=== PATIENT | female | born 1945 | race Caucasian/White ===

== ENCOUNTER → 2016-12-04 | Outpatient (CLI) | payer MEDICARE ==
--- NOTE | 2016-12-04 17:30 | ECHOF ---
Referral Reason:I35.1 Nonrheumatic aortic valve insufficiency MEASUREMENTS -------- HEIGHT: 165.1 cm WEIGHT: 71.2 kg BP: 145/90 IVSd: 0.8 cm (0.6 - 1.1) LVIDd: 3.6 cm (3.9 - 5.3) LVPWd: 0.7 cm (0.6 - 1.1) IVSs: 1.6 cm LVIDs: 2.0 cm LVPWs: 1.5 cm Ao Diam: 2.2 cm (2.0 - 3.7) AV Cusp: 1.0 cm (1.5 - 2.6) LA Diam: 2.9 cm (2.7 - 3.8) MV EXCURSION: 10.065 mm (> 18.000) MV EF SLOPE: 50 mm/s (70 - 150) EPSS: 0.4 cm MV E Niranjan: 1.06 m/s MV DecT: 274 ms MV A Niranjan: 1.05 m/s MV E/A Ratio: 1.01 AV maxP.55 mmHg AV meanP.39 mmHg AR PHT: 1221 ms RAP: 5.00 mmHg RVSP: 34.87 mmHg FINDINGS -------- Sinus rhythm. This was a technically good study. Left ventricular wall thickness is normal. Overall left ventricular systolic function is normal with, an EF between 55 - 60 %. The right ventricle is normal in size and function. The left atrium is normal in size. The right atrium is normal in size. Aortic valve is trileaflet and is moderately thickened. There is mild aortic regurgitation. There is moderate aortic stenosis present. Peak/mean gradient across the Aortic Valve is 25.55mmHg / 17.39mmHg. The mitral valve leaflets are mildly thickened. Mild mitral regurgitation is present. Mild tricuspid regurgitation present. The right ventricular systolic pressure, as measured by Doppler, is 34.87mmHg. Pulmonic valve appears structurally normal. The aortic root size is normal. The pericardium is normal. CONCLUSIONS -------- 1. Sinus rhythm. 2. There is moderate aortic stenosis present. 3. Peak/mean gradient across the Aortic Valve is 25.55mmHg / 17.39mmHg. 4. The mitral valve leaflets are mildly thickened. 5. Mild mitral regurgitation is present. 6. Mild tricuspid regurgitation present. 7. The right ventricular systolic pressure, as measured by Doppler, is 34.87mmHg. 8. Pulmonic valve appears structurally normal. 9. The aortic root size is normal. 10. The pericardium is normal. 11. This was a technically good study. 12. Left ventricular wall thickness is normal. 13. Overall left ventricular systolic function is normal with, an EF between 55 - 60 %. 14. The right ventricle is normal in size and function. 15. The left atrium is normal in size. 16. The right atrium is normal in size. 17. Aortic valve is trileaflet and is moderately thickened. 18. There is mild aortic regurgitation. LEGAL DIRECTOR: Carolina Garcias RDCS
== END | disposition home or self-care (01) ==
LOC: RADECHMAIN 13:08
PROVIDERS: ATTEND Family Medicine
DX: I08.3 Combined rheumatic disorders of mitral, aortic and tricuspid valves (principal)
CPT/HCPCS: 93306

== ENCOUNTER → 2017-07-08 | Outpatient (CLI) | payer MEDICARE ==
--- NOTE | 2017-07-08 09:15 | CT ---
EXAMINATION TYPE: CT lumbar spine wo con DATE OF EXAM: 07/08/2017 COMPARISON: NONE HISTORY: 71-year-old female complains of chronic low back pain, increased after recent fall. Collapse d vertebra. TECHNIQUE: Contiguous axial scanning of the lumbar spine without IV contrast. Coronal and sagittal re constructions performed. CT DLP: 963 mGycm Automated exposure control for dose reduction was used. FINDINGS: There is mild to moderate paravertebral soft tissue swelling at the T11-T12 and T12 levels. Small amount of air just deep to the inferior T11 endplate and very slight endplate irregularity, sag ittal image 24. However, there is a superior endplate fracture of T12 with only minimal 5-10% overall vertebral body height loss. Mild bulging disc at this T11-T12 level impresses onto the ventral thecal sac without si gnificant spinal canal stenosis. Moderate right and mild left neuroforaminal stenosis at this level. There is a large Schmorl's node of L4 vertebral body and slight retropulsion of the superior endplate into the ventral spinal canal minimally narrowing the spinal canal. No acute fracture lucency or par avertebral swelling is seen. There is moderate bilateral neuroforaminal stenosis at this L3-L4 level. At L2-L3, there is diffuse disc bulge impressing on the ventral thecal sac. At L4-L5, diffuse disc bulge impressing on the ventral thecal sac. Additional facet arthropathy contr ibuting to mild bilateral neural foraminal stenosis. Disc material may abut both traversing L5 nerve roots here. At L5-S1, there is facet arthropathy and bulging disc. Changes result in moderate to severe bilateral neural foraminal stenosis without significant spinal canal stenosis. Degenerative thinning of the interspinous ligaments with abutment of the spinous processes in the low er lumbar spine. There is diffuse ectasia of the abdominal aorta with a trilobed fusiform dilatations of the infrarena l abdominal aorta. The upper fusiform dilatation measures up to 2.5 cm, the mid fusiform dilatation m easures up to 2.4 cm, and the distal abdominal aortic AAA measures up to 3.8 cm measured on coronal i mage 4. 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 IMPRESSION: 1. MODERATE MULTILEVEL DEGENERATIVE DISC DISEASE. ADDITIONAL FACET ARTHROPATHY LOWER LUMBAR SPINE AND BAASTRUP'S DISEASE LOWER LUMBAR SPINE. NO MALALIGNMENT. 2. PARAVERTEBRAL SOFT TISSUE SWELLING AT T11-T12. SUSPECT AN ACUTE DEVELOPING SCHMORL'S NODE OF THE I NFERIOR T11 ENDPLATE AND A MILD SUPERIOR ENDPLATE FRACTURE OF T12. MINIMAL 5-10% OVERALL HEIGHT LOSS OF THE T12 VERTEBRAL BODY AND MINIMAL RETROPULSION INTO THE VENTRAL SPINAL CANAL WITHOUT CANAL COMPRO MISE. 3. MODERATE RIGHT AND MILD LEFT NEURAL FORAMINAL STENOSIS HERE AT T11-T12. 4. THE MILD SUPERIOR ENDPLATE COMPRESSION DEFORMITY OF L4 APPEARS CHRONIC. 5. MODERATE TO SEVERE BILATERAL NEURAL FORAMINAL STENOSES AT L5-S1 SECONDARY TO BULGING DISC AND FACE T ARTHROPATHY. ADDITIONAL DEGENERATIVE CHANGES OUTLINED ABOVE. 6. NOTE ECTATIC ABDOMINAL AORTA WITH A DISTAL AAA MEASURING UP TO 3.8 CM. APPROPRIATE FOLLOW-UP RECOM MENDED. 7. 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
== END | disposition home or self-care (01) ==
LOC: RADCTMAIN 08:32
PROVIDERS: ATTEND Family Medicine
DX: M99.73 Connective tissue and disc stenosis of intervertebral foramina of lumbar region (principal); M51.27 Other intervertebral disc displacement, lumbosacral region; M47.816 Spondylosis without myelopathy or radiculopathy, lumbar region; M51.36 Other intervertebral disc degeneration, lumbar region; M46.87 Other specified inflammatory spondylopathies, lumbosacral region; M43.8X6 Other specified deforming dorsopathies, lumbar region; M48.26 Kissing spine, lumbar region
CPT/HCPCS: 72131

== ENCOUNTER → 2017-07-29 | Outpatient (CLI) | payer MEDICARE ==
--- NOTE | 2017-08-02 07:59 | MM ---
Reason for exam: screening (asymptomatic). Last mammogram was performed 1 year and 3 months ago. History: Patient is postmenopausal. Took estrogen for 15 years. Took progesterone for 15 years. Physical Findings: A clinical breast exam by your physician is recommended on an annual basis and results should be correlated with mammographic findings. MG 3D Screening Mammo W/Cad Bilateral CC and MLO view(s) were taken. Prior study comparison: May 11, 2016, bilateral MG 3d screening mammo w/cad. May 01, 2015, bilateral MG screening mammo w CAD. The breast tissue is almost entirely fat. No significant changes when compared with prior studies. ASSESSMENT: Benign, BI-RAD 2 RECOMMENDATION: Routine screening mammogram of both breasts in 1 year.
== END | disposition home or self-care (01) ==
LOC: RADMAMWWP 12:42
PROVIDERS: ATTEND Family Medicine
DX: Z12.31 Encounter for screening mammogram for malignant neoplasm of breast (principal)
CPT/HCPCS: 77063; 77067

== ENCOUNTER → 2017-11-04 | Outpatient (CLI) | payer MEDICARE ==
--- NOTE | 2017-11-04 20:39 | ECHOF ---
Referral Reason:I35.0 Nonrheumatic Aortic Valve Stenosis MEASUREMENTS -------- HEIGHT: 162.6 cm WEIGHT: 72.6 kg BP: 181/81 RVIDd: 3.0 cm (< 3.3) IVSd: 1.2 cm (0.6 - 1.1) LVIDd: 3.8 cm (3.9 - 5.3) LVPWd: 1.3 cm (0.6 - 1.1) IVSs: 1.8 cm LVIDs: 2.1 cm LVPWs: 1.6 cm LA Diam: 3.4 cm (2.7 - 3.8) LAESV Index (A-L): 24.73 ml/m Ao Diam: 3.0 cm (2.0 - 3.7) AV Cusp: 1.7 cm (1.5 - 2.6) MV EXCURSION: 11.714 mm (> 18.000) MV EF SLOPE: 34 mm/s (70 - 150) EPSS: 0.6 cm MV E Niranjan: 0.94 m/s MV DecT: 265 ms MV A Niranjan: 1.13 m/s MV E/A Ratio: 0.84 AV maxP.52 mmHg AV meanP.16 mmHg AR PHT: 1721 ms RAP: 5.00 mmHg RVSP: 29.93 mmHg FINDINGS -------- Sinus rhythm. This was a technically adequate study. The left ventricular size is normal. There is mild concentric left ventricular hypertrophy. Overa ll left ventricular systolic function is normal with, an EF between 55 - 60 %. The right ventricle is normal in size. Normal LA size by volume 22+/-6 ml/m2. The right atrium is normal in size. There is mild to moderate aortic valve sclerosis. There is mild aortic regurgitation. There is mo derate aortic stenosis present. Peak/mean gradient across the Aortic Valve is 41.52mmHg / 24.16mmHg . Mild mitral annular calcification present. Mild mitral regurgitation is present. Mild tricuspid regurgitation present. Right ventricular systolic pressure is normal at < 35 mmHg. The pulmonic valve was not well visualized. There is no pulmonic regurgitation present. The aortic root size is normal. Normal inferior vena cava with normal inspiratory collapse consistent with estimated right atrial pre ssure of 5 mmHg. There is no pericardial effusion. CONCLUSIONS -------- 1. Sinus rhythm. 2. This was a technically adequate study. 3. The left ventricular size is normal. 4. There is mild concentric left ventricular hypertrophy. 5. Overall left ventricular systolic function is normal with, an EF between 55 - 60 %. 6. Normal LA size by volume 22+/-6 ml/m2. 7. There is mild to moderate aortic valve sclerosis. 8. There is mild aortic regurgitation. 9. There is moderate aortic stenosis present. 10. Peak/mean gradient across the Aortic Valve is 41.52mmHg / 24.16mmHg. 11. Mild mitral annular calcification present. 12. Mild mitral regurgitation is present. 13. Mild tricuspid regurgitation present. 14. Right ventricular systolic pressure is normal at < 35 mmHg. 15. The pulmonic valve was not well visualized. 16. There is no pulmonic regurgitation present. 17. The aortic root size is normal. 18. Normal inferior vena cava with normal inspiratory collapse consistent with estimated right atrial pressure of 5 mmHg. 19. There is no pericardial effusion. CANCER REGISTRAR: Leslie Scott RDCS
== END | disposition home or self-care (01) ==
LOC: RADECHMAIN 15:21
PROVIDERS: ATTEND Family Medicine
DX: I35.8 Other nonrheumatic aortic valve disorders (principal)
CPT/HCPCS: 93306

== ENCOUNTER → 2018-08-01 | Outpatient (CLI) | payer MEDICARE ==
--- NOTE | 2018-08-02 09:19 | MM ---
Reason for exam: screening (asymptomatic). Last mammogram was performed 1 year ago. History: Patient is postmenopausal. Took estrogen for 15 years. Took progesterone for 15 years. Physical Findings: A clinical breast exam by your physician is recommended on an annual basis and results should be correlated with mammographic findings. MG 3D Screening Mammo W/Cad Bilateral CC and MLO view(s) were taken. Prior study comparison: July 29, 2017, bilateral MG 3d screening mammo w/cad. May 11, 2016, bilateral MG 3d screening mammo w/cad. There are scattered fibroglandular densities. There are benign appearing round vascular calcifications bilaterally. There is chronic nodularity in the left breast. There is no discrete abnormality. ASSESSMENT: Benign, BI-RAD 2 RECOMMENDATION: Routine screening mammogram of both breasts in 1 year.
== END | disposition home or self-care (01) ==
LOC: RADMAMWWP 11:18
PROVIDERS: ATTEND Family Medicine
DX: Z12.31 Encounter for screening mammogram for malignant neoplasm of breast (principal)
CPT/HCPCS: 77063; 77067

== ENCOUNTER 2019-02-20 18:30 | Emergency (ER) | payer MEDICARE ==
--- NOTE | 2019-02-20 20:21 | CT ---
EXAMINATION TYPE: CT brain wo con DATE OF EXAM: 02/20/2019 COMPARISON: None HISTORY: Fall, left supraorbital injury. CT DLP: 1076.4 mGycm Automated exposure control for dose reduction was used. FINDINGS: There is left frontal scalp soft tissue swelling and lobe apparent laceration deformity. There is cerebral cortical atrophy. There is no mass effect nor midline shift. There is no sign of in tracranial hemorrhage. There is no evidence of skull fracture. There is mild hypodensity in the periv entricular white matter. IMPRESSION: SCALP LACERATION DEFORMITY. CEREBRAL ATROPHY AND MILD CHRONIC SMALL VESSEL ISCHEMIA. NO ACUTE INTRACRANIAL ABNORMALITY.
--- NOTE | 2019-02-20 20:22 | ED ---
General Adult HPI - General Source: patient, RN notes reviewed Mode of arrival: ambulatory Limitations: no limitations <Pete Abdul - Last Filed: 02/20/19 20:52> <Shannan Erwin - Last Filed: 02/20/19 21:20> - General Chief complaint: Fall Stated complaint: Fell hit head/injury Time Seen by Provider: 02/20/19 19:05 - History of Present Illness Initial comments: This is a 73-year-old female who presents emergency Department complaining that she tripped and fell and hit her head area patient states she's not on any blood thinners. Patient denies headache patient denies loss of consciousness or dazed. Patient denies any neck pain patient denies numbness weakness. Patient denies any chest pain back pain or any extremity pain. Patient denies any abdominal pain. Patient denies any difficulty breathing first breath. Patient states she cannot take tetanus because she has a reaction to it. Patient has no complaints: Other than the laceration on her forehead. (Pete Abdul) - Related Data Home Medications Medication Instructions Recorded Confirmed Cholecalciferol [Vitamin D3] 5,000 unit PO DAILY 12/31/15 02/20/19 Multivitamins, Thera [Multivitamin] 1 tab PO DAILY 12/31/15 02/20/19 NIFEdipine [Procardia XL] 60 mg PO DAILY 12/31/15 02/20/19 Timolol 0.5% Ophth Soln [Timoptic 1 drop LEFT EYE BID 12/31/15 02/20/19 0.5% Ophth Soln] Aspirin EC [Ecotrin] 325 mg PO DAILY 02/20/19 02/20/19 Calcium Carbonate/Vitamin D3 1 cap PO DAILY 02/20/19 02/20/19 [Calcium 600-Vit D3 500 Softgel] Magnesium Oxide [Mag-Ox] 400 mg PO DAILY 02/20/19 02/20/19 [place]-3 Fatty Acids/Fish Oil [Fish 1 cap PO DAILY 02/20/19 02/20/19 Oil 1,000 mg Softgel] Rosuvastatin [Crestor] 10 mg PO DAILY 02/20/19 02/20/19 Allergies Allergy/AdvReac Type Severity Reaction Status Date / Time Androgenic Anabolic Steroid Allergy Nausea & Verified 02/20/19 20:28 Vomiting codeine Allergy Chest Pain Verified 02/20/19 20:28 Tetanus Vaccines and Toxoid Allergy Swelling Verified 02/20/19 20:28 Review of Systems ROS Other: All systems not noted in ROS Statement are negative. <AbdulPete - Last Filed: 02/20/19 20:52> ROS Other: All systems not noted in ROS Statement are negative. <Shannan Erwin - Last Filed: 02/20/19 21:20> ROS Statement: Those systems with pertinent positive or pertinent negative responses have been documented in the HPI. Past Medical History Past Medical History: Blood Disorder, Deep Vein Thrombosis (DVT), Hyperlipidemia, Hypertension, Osteoarthritis (OA) Additional Past Medical History / Comment(s): heart murmer, , Factor V Liden History of Any Multi-Drug Resistant Organisms: None Reported Past Surgical History: Appendectomy, Cholecystectomy, Hysterectomy, Joint Replacement, Orthopedic Surgery Additional Past Surgical History / Comment(s): total rt knee replacement,left shoulder arthroscopy, rt shoulder surgery, rt eye surgery for torn retina Past Anesthesia/Blood Transfusion Reactions: No Reported Reaction Past Psychological History: No Psychological Hx Reported Smoking Status: Former smoker Past Alcohol Use History: Occasional Past Drug Use History: None Reported - Past Family History Mother Family Medical History: Cancer Sister(s) Family Medical History: Deep Vein Thrombosis (DVT), Pulmonary Embolus <Pete Abdul - Last Filed: 02/20/19 20:52> General Exam Limitations: no limitations <Pete Abdul - Last Filed: 02/20/19 20:52> - General Exam Comments Initial Comments: GENERAL: Patient is well-developed and well-nourished. Patient is nontoxic and well- hydrated and is in mild distress. ENT: Neck is soft and supple. No significant lymphadenopathy is noted. Oropharynx is clear. Moist mucous membranes. Neck has full range of motion without eliciting any pain. EYES: The sclera were anicteric and conjunctiva were pink and moist. Extraocular movements were intact and pupils were equal round and reactive to light. Eyelids were unremarkable. PULMONARY: Unlabored respirations. Good breath sounds bilaterally. No audible rales rhonchi or wheezing was noted. CARDIOVASCULAR: There is a regular rate and rhythm without any murmurs gallops or rubs. ABDOMEN: Soft and nontender with normal bowel sounds. No palpable organomegaly was noted. There is no palpable pulsatile mass. SKIN: Patient has a crescent shape laceration on the left side of her forehead measuring approximately 5 cm NEUROLOGIC: Patient is alert and oriented x3. Cranial nerves II through XII are grossly intact. Motor and sensory are also intact. Normal speech, volume and content. Symmetrical smile. MUSCULOSKELETAL: Normal extremities with adequate strength and full range of motion. No lower extremity swelling or edema. No calf tenderness. LYMPHATICS: No significant lymphadenopathy is noted PSYCHIATRIC: Normal psychiatric evaluation. (Pete Abdul) Course Vital Signs 02/20/19 02/20/19 19:04 20:25 Temperature 98.0 F 98 F Pulse Rate 63 75 Respiratory 95 H 18 Rate Blood Pressure 157/89 157/73 O2 Sat by Pulse 98 95 Oximetry Procedures - Laceration Laceration #1 Consent Obtained: verbal consent Indication: laceration Site: face (4) Size (cm): 5 Description: linear Depth: simple, single layer Anesthetic Used: lidocaine 1% Anesthesia Technique: local infiltration Amount (mls): 3 Pre-repair: wound explored, irrigated extensively, deep structures intact Type of Sutures: nylon Size of Sutures: 6-0 Number of Sutures: 9 Technique: simple, interrupted Patient Tolerated Procedure: well, no complications <Shannan Erwin - Last Filed: 02/20/19 21:20> - Laceration Laceration #1 Additional Comments: after obtaining verbal consent and extensive irrigation and local anesthetic I closed the wound using 6. 0 nylon sutures. Patient tolerated the procedure well wound edges approximated well patient evidence of foreign body or damage to underlying structures. Bleeding controlled (Shannan Erwin) Medical Decision Making <Pete Abdul - Last Filed: 02/20/19 20:52> - Medical Decision Making CT of the head shows no acute abnormality. Patient remains asymptomatic (Pete Abdul) Disposition Is patient prescribed a controlled substance at d/c from ED?: No Time of Disposition: 20:53 <Pete Abdul - Last Filed: 02/20/19 20:52> <Shannan Erwin - Last Filed: 02/20/19 21:20> Clinical Impression: Fall, Forehead laceration Disposition: HOME SELF-CARE Condition: Good Instructions (If sedation given, give patient instructions): Laceration (ED), Fall Prevention for Older Adults (ED) Additional Instructions: Sutures should be removed in 7 days Referrals: Boby Long DO [Primary Care Provider] - 1-2 days
[2019-02-20] MEDS ORDERED: DIAZEPAM 5 MG/ML 2 ML INJ IM ONE (20:32)
[2019-02-20] MEDS ORDERED: LIDOCAINE 1% INJ 10MG/ML (20 ML MDV) SQ ONE (20:47)
[2019-02-20 22:06] VITALS: PULSE 86; TEMP 98.6
[2019-02-20 22:07] VITALS: BP 148/78; RESP 18
== END 2019-02-20 22:00 | disposition home or self-care (01) ==
LOC: EC 18:30
DX: S01.81XA Laceration without foreign body of other part of head, initial encounter (principal); I10 Essential (primary) hypertension; M19.90 Unspecified osteoarthritis, unspecified site; Z79.82 Long term (current) use of aspirin; Z79.899 Other long term (current) drug therapy; Z88.8 Allergy status to other drugs, medicaments and biological substances; Z88.5 Allergy status to narcotic agent; Z88.7 Allergy status to serum and vaccine; Z87.891 Personal history of nicotine dependence; Z96.651 Presence of right artificial knee joint; W01.198A Fall on same level from slipping, tripping and stumbling with subsequent striking against other object, initial encounter; Y92.009 Unspecified place in unspecified non-institutional (private) residence as the place of occurrence of the external cause
CPT/HCPCS: 70450; 99283; 12013; J2001

== ENCOUNTER → 2019-11-28 | Outpatient (CLI) | payer MEDICARE ==
--- NOTE | 2019-11-29 08:27 | MM ---
Reason for exam: screening (asymptomatic). Last mammogram was performed 1 year and 4 months ago. History: Patient is postmenopausal. Took estrogen for 15 years. Took progesterone for 15 years. Physical Findings: A clinical breast exam by your physician is recommended on an annual basis and results should be correlated with mammographic findings. MG 3D Screening Mammo W/Cad Bilateral CC and MLO view(s) were taken. Prior study comparison: August 01, 2018, bilateral MG 3d screening mammo w/cad. July 29, 2017, bilateral MG 3d screening mammo w/cad. There are scattered fibroglandular densities. Stable benign calcifications. No significant changes when compared with prior studies. ASSESSMENT: Benign, BI-RAD 2 RECOMMENDATION: Routine screening mammogram of both breasts in 1 year.
== END | disposition home or self-care (01) ==
LOC: RADMAMWWP 10:58
PROVIDERS: ATTEND Family Medicine
DX: Z12.31 Encounter for screening mammogram for malignant neoplasm of breast (principal)
CPT/HCPCS: 77063; 77067

== ENCOUNTER → 2021-02-07 | Outpatient (CLI) | payer MEDICARE ==
--- NOTE | 2021-02-12 08:26 | MM ---
Reason for exam: screening (asymptomatic). Last mammogram was performed 1 year and 2 months ago. History: Patient is postmenopausal. Took estrogen for 15 years. Took progesterone for 15 years. Physical Findings: A clinical breast exam by your physician is recommended on an annual basis and results should be correlated with mammographic findings. MG 3D Screening Mammo W/Cad Bilateral CC and MLO view(s) were taken. Prior study comparison: November 28, 2019, bilateral MG 3d screening mammo w/cad. August 01, 2018, bilateral MG 3d screening mammo w/cad. There are scattered fibroglandular densities. There is chronic nodularity in the left breast. No significant changes when compared with prior studies. ASSESSMENT: Benign, BI-RAD 2 RECOMMENDATION: Routine screening mammogram of both breasts in 1 year.
== END | disposition home or self-care (01) ==
LOC: RADMAMWWP 15:52
PROVIDERS: ATTEND Family Medicine
DX: Z12.31 Encounter for screening mammogram for malignant neoplasm of breast (principal); Z78.0 Asymptomatic menopausal state; Z79.818 Long term (current) use of other agents affecting estrogen receptors and estrogen levels
CPT/HCPCS: 77063; 77067

== ENCOUNTER → 2021-03-24 | Outpatient (CLI) | payer MEDICARE ==
[2021-03-24 15:05] LABS: Basophils # (A) 0.1 k/uL (0-0.2); Basophils % (A) 2 %; Eosinophils # (A) 0.2 k/uL (0-0.7); Eosinophils % (A) 4 %; HCT 45.3 % (34.0-46.0); HGB 14.1 gm/dL (11.4-16.0); Lymphocytes # (A) 1.5 k/uL (1.0-4.8); Lymphocytes % (A) 34 %; MCH 30.9 pg (25.0-35.0); MCHC 31.1 g/dL (31.0-37.0); MCV 99.5 fL (80.0-100.0); Mean Platelet Volume 8.4; Monocytes # (A) 0.3 k/uL (0-1.0); Monocytes % (A) 7 %; Neutrophils # (A) 2.4 k/uL (1.3-7.7); Neutrophils % (A) 53 %; Platelet Count 209 k/uL (150-450); RBC 4.55 m/uL (3.80-5.40); RDW 12.7 % (11.5-15.5); WBC 4.6 k/uL (3.8-10.6)
== END | disposition home or self-care (01) ==
LOC: LABPAT 12:59
PROVIDERS: ATTEND Internal Medicine Interventional Cardiology
DX: Z01.812 Encounter for preprocedural laboratory examination (principal); I35.0 Nonrheumatic aortic (valve) stenosis
CPT/HCPCS: 80051; 82565; 84520; 85025

== ENCOUNTER → 2021-03-27 | Day surgery (SDC) | payer MEDICARE ==
[2021-03-24 09:38] VITALS: BMI 25.7
[~2021-03-27] MED LIST: ALPRAZolam 0.25 MG TAB PO PRN; ALPRAZolam 0.5 MG TAB PO PRN; ASPIRIN 325 MG TAB PO STA; ASPIRIN 81 MG PO SCH; ATORVASTATIN 20 MG TAB PO SCH; ATORVASTATIN 80 MG TAB PO STA; BENZOCAINE SPRAY 1 CAN TOPICAL ONE; HEPARIN SODIUM 1,000 UN/ML (10ML VL) ONE; HEPARIN SODIUM,PORCINE 10,000 UNIT in SODIUM CHLORIDE 0.9% 1,000 ML IRRIGATION PRN; HEPARIN SODIUM,PORCINE 2,500 UNIT in SODIUM CHLORIDE 0.9% 250 ML IRRIGATION PRN; IOPAMIDOL-370 125ML BTL INJ ONE; LIDOCAINE 1% INJ 10MG/ML (20 ML MDV) ONE; LIDOCAINE 1% INJ 10MG/ML (20 ML MDV) SQ ONE; MIDAZOLAM 2 MG/2 ML VIAL IV ONE; NITROGLYCERIN SL TABS 0.4 MG TAB SUBLINGUAL PRN; RX INFO: IV CONTRAST WAS GIVEN 1 EACH MISC MISCELLANE PRN; SODIUM CHLORIDE 0.9% 1,000 ML IV SCH; SODIUM CHLORIDE 0.9% 1,000 ML in EMPTY BAG 1 BAG IV SCH; VERAPAMIL 2.5 MG/ML 2 ML AMP ONE; VERAPAMIL SYRINGE (5 MG/10 ML) INTRAARTER ONE; fentaNYL (PF) 50 MCG/ML 2 ML AMP IV ONE; fentaNYL (PF) 50 MCG/ML 2 ML AMP ONE
[2021-03-27 07:18] VITALS: TEMP 98.6
[2021-03-27 08:29] LABS: O2 Sat Blood Gas 88.6 %
[2021-03-27 08:30] LABS: O2 Sat Blood Gas 69.3 %
[2021-03-27 08:30] LABS: O2 Sat Blood Gas 67.6 %
--- NOTE | 2021-03-27 11:26 | ECHOT ---
TRANSESOPHAGEAL ECHOCARDIOGRAM INDICATION: Evaluation of aortic valve. PROCEDURE DESCRIPTION: After explaining the procedure to the patient, its risks and complications, her blood pressure, heart rate and O2 saturation were monitored. The throat was sprayed with Cetacaine. She received 2 mg of intravenous Versed, 50 mcg intravenous fentanyl. The probe was introduced into the esophagus without difficulty. Images were obtained. Following that, the probe was removed. There was no immediate complication. FINDINGS: Left atrial size is normal. Left atrial appendage is normal. Left ventricular size and systolic function normal. Concentric left ventricular hypertrophy was noted. The aortic valve is a tricuspid valve, calcified, with reduced opening. By planimetry the valve area is 0.8 cm2. The mitral valve appears to be normal. Tricuspid valve is normal. Descending thoracic aorta revealed mild atherosclerotic changes. No pericardial effusion was noted. Contrast bubble study revealed minimal shunting across the interatrial septum with Valsalva maneuver consistent with a PFO. Doppler, pulse wave and color Doppler were obtained and revealed mild mitral, aortic and tricuspid regurgitation. The peak gradient across the aortic valve was 62 mmHg with a mean of 36 mmHg. CONCLUSION: 1. Normal ventricular size and systolic function. 2. Moderate to severe aortic stenosis with a mean gradient of 36 mmHg and an aortic valve area of 0.8 cm2. 3. Mild aortic, tricuspid and mitral regurgitation. 4. Small patent santos ovale. 5. No pericardial effusion. MMODL / IJN: [id number] /
--- NOTE | 2021-03-27 12:46 | CC ---
CARDIAC CATHETERIZATION REPORT Mrs. Yu is a 75-year-old female with known history of hypertension and hyperlipidemia who has been complaining of progressive dyspnea on exertion. She has a history of aortic stenosis and has progression of her gradient. In view of that, recommendation was made regarding cardiac catheterization. The procedure as well as its risks and complications were discussed with the patient, who was in full understanding and agreement. PROCEDURE DESCRIPTION: Patient was brought to the labor conciliator in a fasting, semi-sedated state after receiving fentanyl and Benadryl and achieving a moderate conscious sedated state. Using Xylocaine anesthesia and Seldinger technique, a 6-Beninese sheath was introduced in the right radial artery. The intravenous catheter in the right basilic vein was exchanged using guidewire exchange for a 6-Beninese sheath. Subsequently right heart catheterization was performed using a Capron-Chris catheter. Multiple pressures and samples were obtained. Cardiac output by thermodilution was calculated. Following that, selective right and left coronary angiography was performed using 5-Beninese 3-1/2 bend right and left Eleazar catheters. Multiple views were taken of the arteries, including hemiaxial views. Following that, the right Eleazar was used to cross the aortic valve. The left ventricular end-diastolic pressure was calculated. Following that, catheter and sheath were removed. Hemostasis was obtained with deployment of a TR band on the radial artery and compression of the basilic vein. There was no immediate complication. Patient was returned to her room in stable condition. Of note, the patient received 3500 units of intravenous heparin as well as intra-arterial verapamil. FINDINGS: HEMODYNAMICS: Pulmonary saturation 68%, right atrial saturation 69%, arterial saturation 87%. Cardiac output by thermodilution 4.8 L/minute and by Justen 6 L/minute. Pulmonary artery systolic pressure of 28 with a diastolic of 5 and a mean of 15 mmHg. Pulmonary capillary wedge pressure A-wave of 8, V-wave of 8 with a mean of 5 mmHg. Right ventricular systolic pressure of 29 with a diastolic of 4 mmHg. Right atrial A- wave of 4, V-wave of 2 with a mean of 2 mmHg. Left ventricular end-diastolic pressure of 15 mmHg. Left ventricular systolic pressure of 177 mmHg with an ascending aorta pressure of 127 mmHg with a gradient of 50 mmHg. The valve area is ranging between of 0.6 and 0.9 cm2. FLUOROSCOPY: There is severe calcification involving all the coronary arteries as well as the aortic valve. LEFT MAIN: This is a large-sized vessel bifurcating into left circumflex and left anterior descending coronary artery. Left main coronary artery has no evidence of high- grade stenosis. LEFT ANTERIOR DESCENDING ARTERY: This is a large-sized vessel reaching to the apex giving rise to 3 diagonal branches. The left anterior descending artery as well as its branches have no evidence of obstructive coronary artery disease. LEFT CIRCUMFLEX: This is a nondominant, large-sized vessel giving rise to a large obtuse marginal branch. The left circumflex proximally has a 20% to 30% plaque. In the obtuse marginal branch there is another 30% to 40% plaque without any evidence of high- grade stenosis. RIGHT CORONARY ARTERY: This is a large dominant vessel bifurcating into PDA and posterolateral segment and branches. The right coronary artery has an eccentric plaque proximally of about 30%. There is another plaque in the mid and distal segment of 30% with no evidence of high-grade stenosis. LEFT VENTRICULOGRAM: Left ventriculogram was not performed. CONCLUSION: 1. Mild coronary artery disease involving the left circumflex and the right coronary artery. 2. Severe aortic stenosis. 3. Calcified coronary arteries and calcified aortic valve. RECOMMENDATIONS: In view of findings and anatomy, I recommend proceeding with evaluation for aortic valve replacement. The findings as well as the recommendation were discussed with the patient, who is in full understanding and agreement. During of sedation was 39 minutes. MMCHRISTINL / DOMITILAN: [id number] / MTDD
--- NOTE | 2021-03-27 12:50 | LTR ---
March 27, 2021 To: Dr. Long Re: Abbie Yu (41) Dear Dr. Long, I had the pleasure of performing cardiac catheterization on Mrs. Yu at [facility] on March 27, and a full copy of the procedure note will be forwarded to you. In brief, she was found to have mild coronary artery disease with severe aortic stenosis. At this time I would recommend proceeding with evaluation for aortic valve replacement. I will keep you updated on her progress. Thank you again for allowing me to participate in this patient's care. Please feel free to call with any questions. Sincerely, Alfonso Su M.D. NEAL / TONY: [id number] /
[2021-03-27 15:15] VITALS: BP 128/60; PULSE 58; RESP 16
== END | disposition home or self-care (01) ==
LOC: CATHCVL 06:30
PROVIDERS: ATTEND Internal Medicine Interventional Cardiology
DX: I08.3 Combined rheumatic disorders of mitral, aortic and tricuspid valves (principal); I10 Essential (primary) hypertension; E78.2 Mixed hyperlipidemia; Z87.891 Personal history of nicotine dependence; Z82.49 Family history of ischemic heart disease and other diseases of the circulatory system; Z20.822 Contact with and (suspected) exposure to COVID-19; Z90.710 Acquired absence of both cervix and uterus; Z90.49 Acquired absence of other specified parts of digestive tract; Z96.659 Presence of unspecified artificial knee joint; Z98.49 Cataract extraction status, unspecified eye; Z98.890 Other specified postprocedural states; Z79.82 Long term (current) use of aspirin; Z79.899 Other long term (current) drug therapy; Z88.5 Allergy status to narcotic agent
CPT/HCPCS: 93312; 93320; 93325; 93460; 85018; 82810; 87635; C1769 ×2; C1894; C1751; J2250; J2001; J3010; J1644; Q9967

== ENCOUNTER → 2021-04-10 | Outpatient (CLI) | payer MEDICARE ==
[2021-04-10 09:34] LABS: INR 0.9 (<1.2); Prothrombin Time 9.5 sec (9.0-12.0)
[2021-04-10 09:36] LABS: ALT 21 U/L (4-34); AST 36 U/L (14-36); African American GFR (CKD) 64 (>60 ml/min/1.73 sqM); Albumin 4.5 g/dL (3.5-5.0); Albumin/Globulin Ratio 1.6; Alkaline Phosphatase 98 U/L (38-126); Anion Gap 7 mmol/L; Bilirubin,Unconjugated 0.2 mg/dL (0.0-1.1); Blood Urea Nitrogen 22 mg/dL (7-17); Calcium 10.5 mg/dL (8.4-10.2); Carbon Dioxide 27 mmol/L (22-30); Chloride 105 mmol/L (98-107); Globulin 2.9 g/dL; Glucose 103 mg/dL (74-99); Magnesium 2.3 mg/dL (1.6-2.3); Non-African American GFR(CKD) 55 (>60 ml/min/1.73 sqM); Potassium 4.5 mmol/L (3.5-5.1); Sodium 139 mmol/L (137-145); Total Bilirubin 0.4 mg/dL (0.2-1.3); Total Protein 7.4 g/dL (6.3-8.2)
[2021-04-10 10:06] LABS: Partial Thromboplastin Time 20.1 sec (22.0-30.0)
[2021-04-10 10:35] LABS: Appearance,Urine Clear (Clear); Bacteria,Urine Rare /hpf; Bilirubin,Urine Negative (Negative); Blood,Urine Negative (Negative); Color,Urine Yellow; Glucose,Urine (UA) Negative (Negative); Hyaline Casts,Urine 1 /lpf (0-2); Ketones,Urine Negative (Negative); Leukocyte Esterase,Urine Large (Negative); Mucus,Urine Rare /hpf; Nitrite,Urine Negative (Negative); Protein,Urine Negative (Negative); RBC,Urine 1 /hpf (0-5); Specific Gravity,Urine 1.016 (1.001-1.035); Squamous Epithelial Cell,Urine 2 /hpf (0-4); Urobilinogen,Urine <2.0 mg/dL (<2.0); WBC,Urine 35 /hpf (0-5)
--- NOTE | 2021-04-10 11:24 | CT ---
EXAMINATION TYPE: CT TAVR Planning DATE OF EXAM: 04/10/2021 HISTORY: Non rheumatic aortic valve insufficiency CT DLP: 1447.90 mGycm Automated Exposure Control for Dose Reduction was Utilized. CONTRAST: CT scan of the chest, abdomen and pelvis is performed without and with IV Contrast, patient injected with 125 ml mL of Isovue 370. COMPARISON: None. TECHNIQUE: Helical imaging obtained through the chest, abdomen and pelvis during arterial phase lawrence helena administration of radiographic contrast intravenously. FINDINGS: See report from [email or web address] regarding preprocedural planning CHEST: Lower Neck and Thyroid: No significant findings Lungs: [id number] emphysematous changes greatest in the upper lungs. Central Airway: No significant findings Pleura: No significant findings Pulmonary Arteries: No significant findings Heart and Pericardium: Moderate to severe three-vessel coronary artery calcification and/or stents. C orrelate clinically. [id number] calcifications and thickening of the aortic valve leaflets. Lymph Nodes: Nonspecific borderline right pericarinal 1.3 x 1.0 cm lymph node axial image 20 series 9 Mediastinum & Esophagus: No significant findings ABDOMEN/PELVIS: Please note arterial phase of the imaging limits detailed evaluation of the solid abdominal organs. Liver: No significant findings Spleen: No significant findings Kidneys: No significant findings Adrenal Glands: No significant findings Pancreas: No significant findings Gallbladder: Surgically absent Bowel and Mesentery: Diverticula in the sigmoid colon Lymph Nodes: No significant findings Urinary Bladder: No significant findings Pelvic Organs: Uterus surgically absent. Scattered pelvic phleboliths Other: Atherosclerotic and ectatic abdominal aorta. Focal aneurysmal distally up to 3.8 cm axial imag e 461 series 14 with moderate peripheral noncalcified plaque. Osseous structures are demineralized. Mild to moderate loss superior L4 endplate. Mild to moderate co mpression type fractures at T11 and T12 levels with more severe compression type fracture that has sc lerosis at T10 level, lucent component inferiorly may be more subacute in age. Metallic hardware from longstem right knee prosthesis noted on localizer. IMPRESSION: 1. Demineralization with several chronic compression type fractures in the thoracolumbar spine, suspe ct a subacute moderate to severe compression fracture at T10 level. Correlate clinically. 2. Atherosclerotic and ectatic abdominal aorta with focal distal aneurysmal to 3.8 cm
[2021-04-10 11:40] LABS: T4, Free (Free Thyroxine) 1.23 ng/dL (0.78-2.19)
[2021-04-10 15:11] LABS: Basophils # (A) 0.11 X 10*3/uL (0.00-0.10); Basophils % (A) 2.4 %; Eosinophils # (A) 0.32 X 10*3/uL (0.04-0.35); Eosinophils % (A) 6.8 %; HCT 40.6 % (37.2-46.3); HGB 13.4 g/dL (12.0-15.0); Lymphocytes # (A) 1.42 X 10*3/uL (0.90-5.00); Lymphocytes % (A) 30.3 %; MCH 32.8 pg (27.0-32.0); MCV 99.3 fL (80.0-97.0); Mean Platelet Volume 10.5 fL (9.5-12.2); Monocytes # (A) 0.48 X 10*3/uL (0.20-1.00); Monocytes % (A) 10.3 %; Neutrophils # (A) 2.34 X 10*3/uL (1.80-7.70); Platelet Count 251 X 10*3/uL (140-440); RBC 4.09 X 10*6/uL (4.10-5.20); RDW 13.2 % (11.5-14.5); WBC 4.68 X 10*3/uL (4.50-10.00)
[2021-04-10 19:58] LABS: Chol/HDL Ratio 1.64 Ratio; LDL Cholesterol,Calculated 74.4 mg/dL (0.0-131.0)
== END | disposition home or self-care (01) ==
LOC: LABWHC1 08:27
PROVIDERS: ATTEND Thoracic Surgery (Cardiothoracic Vascular Surgery)
DX: I35.1 Nonrheumatic aortic (valve) insufficiency (principal); I71.4 Abdominal aortic aneurysm, without rupture; Z79.01 Long term (current) use of anticoagulants
CPT/HCPCS: 84439; 80061; 80053; 84443; 82248; 83735; 85025; 85610; 85730; 81001; 87086; 87077; 87186; 83036; 71275; 74174; 36415; Q9967

== ENCOUNTER → 2021-04-21 | Outpatient (CLI) | payer MEDICARE ==
[2021-04-21 16:49] LABS: Basophils # (A) 0.1 k/uL (0-0.2); Basophils % (A) 1 %; Eosinophils # (A) 0.1 k/uL (0-0.7); Eosinophils % (A) 3 %; HCT 43.1 % (34.0-46.0); HGB 14.1 gm/dL (11.4-16.0); Lymphocytes # (A) 1.3 k/uL (1.0-4.8); Lymphocytes % (A) 25 %; MCH 32.3 pg (25.0-35.0); MCHC 32.6 g/dL (31.0-37.0); MCV 98.8 fL (80.0-100.0); Monocytes # (A) 0.3 k/uL (0-1.0); Monocytes % (A) 6 %; Neutrophils # (A) 3.3 k/uL (1.3-7.7); Neutrophils % (A) 64 %; Platelet Count 198 k/uL (150-450); RBC 4.36 m/uL (3.80-5.40); RDW 12.7 % (11.5-15.5); WBC 5.2 k/uL (3.8-10.6)
[2021-04-21 16:58] LABS: Prothrombin Time 10.2 sec (9.0-12.0)
[2021-04-21 17:05] LABS: ALT 20 U/L (4-34); AST 31 U/L (14-36); African American GFR (CKD) 54 (>60 ml/min/1.73 sqM); Albumin 4.5 g/dL (3.5-5.0); Albumin/Globulin Ratio 1.6; Alkaline Phosphatase 77 U/L (38-126); Anion Gap 7 mmol/L; Blood Urea Nitrogen 24 mg/dL (7-17); Calcium 9.9 mg/dL (8.4-10.2); Carbon Dioxide 23 mmol/L (22-30); Chloride 109 mmol/L (98-107); Globulin 2.8 g/dL; Glucose 97 mg/dL (74-99); Non-African American GFR(CKD) 47 (>60 ml/min/1.73 sqM); Potassium 4.1 mmol/L (3.5-5.1); Sodium 139 mmol/L (137-145); Total Bilirubin 0.2 mg/dL (0.2-1.3); Total Protein 7.3 g/dL (6.3-8.2)
== END | disposition home or self-care (01) ==
LOC: LABWHC1 16:21
PROVIDERS: ATTEND Thoracic Surgery (Cardiothoracic Vascular Surgery)
DX: I35.1 Nonrheumatic aortic (valve) insufficiency (principal)
CPT/HCPCS: 36415; 80053; 85025; 85610; 86850; 86900; 86901

== ENCOUNTER 2021-04-23 06:32 | Inpatient (IN) | payer MEDICARE ==
[~2021-04-23 06:32] MED LIST changes: -ALPRAZolam 0.25 MG TAB PO PRN; -ALPRAZolam 0.5 MG TAB PO PRN; +ASPIRIN 325 MG TAB PO ONE; -ASPIRIN 325 MG TAB PO STA; -ASPIRIN 81 MG PO SCH; +ATORVASTATIN 10 MG TAB PO ONE; -ATORVASTATIN 20 MG TAB PO SCH; -ATORVASTATIN 80 MG TAB PO STA; -BENZOCAINE SPRAY 1 CAN TOPICAL ONE; +CLEVIDIPINE BUTYRATE 25 MG in EMPTY BAG 1 BAG IV PRN; +CLOPIDOGREL 75 MG TAB PO ONE; +ELECTROLYTE-A SOLUTION 1,000 ML with POTASSIUM CHLORIDE 100 MEQ, MAGNESIUM SULFATE 16 M... IV PRN; -HEPARIN SODIUM 1,000 UN/ML (10ML VL) ONE; -HEPARIN SODIUM,PORCINE 10,000 UNIT in SODIUM CHLORIDE 0.9% 1,000 ML IRRIGATION PRN; -HEPARIN SODIUM,PORCINE 2,500 UNIT in SODIUM CHLORIDE 0.9% 250 ML IRRIGATION PRN; +INSULIN REGULAR 100 UNIT in SODIUM CHLORIDE 0.9% 100 ML IV PRN; -IOPAMIDOL-370 125ML BTL INJ ONE; -LIDOCAINE 1% INJ 10MG/ML (20 ML MDV) ONE; -LIDOCAINE 1% INJ 10MG/ML (20 ML MDV) SQ ONE; +METOPROLOL TARTRATE 25 MG TAB PO ONE; -MIDAZOLAM 2 MG/2 ML VIAL IV ONE; -NITROGLYCERIN SL TABS 0.4 MG TAB SUBLINGUAL PRN; +NITROGLYCERIN-D5W PMX 25 MG/250 ML BTL IV PRN; +PROTAMINE SULFATE 250 MG in EMPTY BAG 1 BAG IV PRN; -RX INFO: IV CONTRAST WAS GIVEN 1 EACH MISC MISCELLANE PRN; -SODIUM CHLORIDE 0.9% 1,000 ML in EMPTY BAG 1 BAG IV SCH; +TRANEXAMIC ACID 2,000 MG in SODIUM CHLORIDE 0.9% 80 ML IV PRN; -VERAPAMIL 2.5 MG/ML 2 ML AMP ONE; -VERAPAMIL SYRINGE (5 MG/10 ML) INTRAARTER ONE; -fentaNYL (PF) 50 MCG/ML 2 ML AMP IV ONE; -fentaNYL (PF) 50 MCG/ML 2 ML AMP ONE
[2021-04-23 07:05] LABS: Glucose,Whole Blood 95 mg/dL (75-99)
[2021-04-23 07:27] LABS: Potassium 3.8 mmol/L (3.5-5.1)
[2021-04-23] MEDS ORDERED: LIDOCAINE 1% INJ 10MG/ML (20 ML MDV) ONE ×2 (08:13→08:25)
[2021-04-23] MEDS ORDERED: NEOSTIGMINE 1 MG/ML 10 ML VIAL ONE (08:25)
[2021-04-23] MEDS ORDERED: fentaNYL (PF) 50 MCG/ML 2 ML AMP ONE (08:25)
[2021-04-23] MEDS ORDERED: ONDANSETRON 4 MG/2 ML VIAL ONE (08:25)
[2021-04-23] MEDS ORDERED: ROCURONIUM 10 MG/ML (5 ML VIAL) IV ONE (08:25)
[2021-04-23] MEDS ORDERED: HEPARIN SODIUM,PORCINE 10,000 UNIT/ML 1 ML VIAL ONE (08:25)
[2021-04-23] MEDS ORDERED: PROPOFOL 10 MG/ML 20 ML VIAL IV ONE (08:25)
[2021-04-23] MEDS ORDERED: ePHEDrine 50 MG/ML 1 ML AMP ONE (08:25)
[2021-04-23] MEDS ORDERED: PHENYLEPHRINE-0.9% NACL SYG 1,000 MCG/10 ML SYRINGE ONE (08:25)
[2021-04-23] MEDS ORDERED: PROTAMINE SULFATE 10 MG/ML 5 ML VIAL IV ONE (08:25)
[2021-04-23] MEDS ORDERED: GLYCOPYRROLATE 0.2 MG/ML 2 ML VIAL ONE (08:25)
[2021-04-23] MEDS ORDERED: MIDAZOLAM 2 MG/2 ML VIAL ONE (08:25)
[2021-04-23] MEDS ORDERED: IOPAMIDOL-250 100ML BTL INTRAARTER ONE (09:52)
--- NOTE | 2021-04-23 10:17 | P.PCN ---
Date of Procedure: 04/23/21 Operative Findings: Transcatheter Aoritc Valve Replacement Operative report PROCEDURE PERFORMED: 1. Percutaneous Aortic Valve Implantation using a 29 mm Core-Valve Evolut-Pro Plus. 2. Transesophageal echocardiography (performed by anesthesia) 3. Ultrasound guided access and repair of right femoral artery access site by Perclose closure device. 4. Placement of temporary pacemaker wire. 5. Selective bilateral common femoral arteries angiogram 6. Ultrasound-guided access of the right and left common femoral arteries 7. Aortic root angiogram INDICATIONS: 1. This is a 75year-old with a history of severe symptomatic aortic valve stenosis. 2. The decision was made with a shared decision between an acquisition analyst as well as cardiothoracic surgeon PERFORMING PHYSICIANS: 1. Kal Priest MD Interventional Cardiology. 2. Delgado Hilliard DO Interventional Cardiology. 3. Jose A Vazquez MD, Cardiothoracic Surgeon. 4. Gloria Gomes MD Proctoring Interventional cardiology SEDATION: General anesthesia provided by anesthesia, see separate note APPROACH: Right and left femoral artery via percutaneous approach PROCEDURE DESCRIPTION: The patient was discussed at valve clinic with multidisciplinary approach with cardiothoracic surgeon as well as extracting machine operator and thought better treated with TAVR. Risks, benefits, and alternatives of the procedure had been explained to the patient who understood the risks and agreed to proceed. After consents were obtained, patient was brought to the transcatheter aortic valve implantation room in the cardiac livestock laborer and general anesthesia was provided by the anesthesiologist (see separate report). Once full body sterile prep was performed, right subclavian venous access was obtained and a temporary pacemaker was screwed in, performed by cardiothoracic surgery. Pacing threshholds were checked and deemed appropriate. Next the left femoral artery waw accessed using a modified Seldinger technique, ultrasound guidance and micropuncture technique. Left common femoral artery angiogram was performed using micropuncture sheath. A 6 Algerian Rabi sheath was placed in the leftfemoral artery. Next, a 6-Algerian pigtail catheter was advanced into the aorta and positioned in the aortic root, aortic root angiography was performed to determine optimal deployment angle. The right femoral artery was accessed using modified Seldinger technique, micropuncture technique and under direct ultrasound guidance. Femoral angiogram was done showing access in the common femoral artery and a 6Fr sheath was placed. Next preclose technique was performed using a only one Perclose. Next a 0.035 Lunderquist wire was placed in the Aorta via a pigtail catheter. Over that the arteriotomy was serially dilated and a 14 Fr [place] sheath was placed. Next a 6F- AL1 catheter was advanced over a wire to the aortic root. A straight wire was advanced through the catheter and used to cross the severely stenotic valve. The AL1 was then exchanged for a 6Fr pigtail catheter and pressure measurements were obtained. The 0.035 Lunderquist wire was then positioned in the apex. Next predilatation was performed using a 20 mm balloon which was positioned across aortic valve under fluoroscopy guidance. Next a 29 mm Corevalve Evolut-Pro Plus was advanced. The valve was then positioned across the aortic valve and confirmed with aortic root angiography. The valve was initially partially deployed however needed repositioning and therefore was recaptured. The valve was then deployed in proper position using slow deployment and with rapid pacing in conjuncture with aortic root angiography and MILLICENT. The delivery system was withdrawn back into the arch and an aortic root injection in conjunction with MILLICENT demonstrated a satisfactory result. There was trivial para valvular leak. There was no evidence of any other significant abnormalities. The preclose Perclose was then deployed in the right femoral artery and hemostasis was achieved. The pigtail was then advanced to the level of the iliac bifurcation via the [] femoral access. Femoral angiogram was performed that showed no contrast leak. The bilateral femoral angiogram demonstrated an arteriotomy in the common femoral artery and this was repaired using a 6F angioseal device with complete hemostasis. The temporary venous pacemaker was sutured in place. The patient was then transported to the ICU in hemodyn amically stable condition, requiring no pressor support. COMPLICATIONS: None CONCLUSION: 1. Implantaion of 29 mm Core-Valve Evolut-Pro Plus transcatheter aortic valve via the right femoral approach under MILLICENT and fluoro guidance with trivial quiana- valvular aortic regurgitation. 2. Placement of temporary pacemaker wire 3. Aortic Root Aortogram. RECOMMENDATIONS: The patient will be monitored in the ICU for hemodynamic and electrical stability. Patient will be on aspirin and Plavix.
[2021-04-23] MEDS ORDERED: Magnesium Replacement Protocol 1 EACH MISC MISCELLANE PRN (10:21)
[2021-04-23] MEDS ORDERED: IPRATROPIUM-ALBUTEROL 3 ML NEB INHALATION PRN (10:21)
[2021-04-23] MEDS ORDERED: Potassium Replacement Protocol 1 EACH MISC MISCELLANE PRN (10:21)
[2021-04-23] MEDS ORDERED: BACLOFEN 10 MG TAB PO PRN (10:21)
[2021-04-23] MEDS ORDERED: ONDANSETRON 4 MG/2 ML VIAL IVP PRN (10:21)
[2021-04-23] MEDS ORDERED: ACETAMINOPHEN TAB 325 MG TAB PO PRN (10:21)
[2021-04-23 10:40] LABS: Glucose,Whole Blood 99 mg/dL (75-99)
[2021-04-23] MEDS: SODIUM CHLORIDE 0.9% 1,000 ML IV SCH (11:01)
[2021-04-23 11:02] LABS: Basophils # (A) 0.1 k/uL (0-0.2); Basophils % (A) 1 %; Eosinophils # (A) 0.2 k/uL (0-0.7); Eosinophils % (A) 5 %; HCT 37.2 % (34.0-46.0); HGB 12.5 gm/dL (11.4-16.0); Lymphocytes # (A) 1.1 k/uL (1.0-4.8); Lymphocytes % (A) 26 %; MCHC 33.5 g/dL (31.0-37.0); MCV 98.4 fL (80.0-100.0); Mean Platelet Volume 7.9; Monocytes # (A) 0.3 k/uL (0-1.0); Monocytes % (A) 6 %; Neutrophils # (A) 2.4 k/uL (1.3-7.7); Neutrophils % (A) 60 %; Platelet Count 164 k/uL (150-450); RBC 3.78 m/uL (3.80-5.40); RDW 12.7 % (11.5-15.5); WBC 4.1 k/uL (3.8-10.6)
[2021-04-23 11:32] LABS: INR 0.9 (<1.2); Prothrombin Time 9.9 sec (9.0-12.0)
[2021-04-23 11:38] LABS: Partial Thromboplastin Time 21.2 sec (22.0-30.0)
--- NOTE | 2021-04-23 12:00 | P.ANPRN ---
Procedure Note - Anesthesia - Invasive Line Right Arterial Line Time Out Performed: Yes Date of Procedure: 04/23/21 Time of Procedure: 07:40 Location of Patient: EP Preparation: Sterile Prep, Sterile Dressing Arterial Line Location: Radial Ultrasound Used: No Needle Guage: 20 Image Stored and Saved: Yes Narrative: Right radial arterial line placed by SRNA
--- NOTE | 2021-04-23 12:03 | P.ANPRN ---
Procedure Note - Anesthesia - MILLICENT Intraop Pre Bypass MILLICENT Intraop - Anesthesia Indication: Date of Procedure: 04/23/21 Pre-operative Diagnosis: Aortic stenosis Post-operative Diagnosis: same Surgeon: Jose A Vazquez Left Ventricle: 60 Ejection Fraction: Normal Regional Wall Motion Abnormalities: None Left Ventricle Hypertrophy: No R. Ventricle Function: Normal Anatomy: Trileaflet Aortic Stenosis: Severe Aortic Regurgitation: Trace Mitral Stenosis: None Mitral Regurgitation: Trace Tricuspid Stenosis: None Tricuspid Regurgitation: Trace Pulmonic Stenosis: None Pulmonic Regurgitation: None R. Atrial Dilation: No R. Atrial PFO: Yes (small) L. Atrial Dilation: No Aortic Dissection: No Aortic Calcification: Moderate Plural Effusion: None - MILLICENT Intraop Post Bypass MILLICENT Intraop Post Bypass Procedure Performed: TAVR Left Ventricle: EF 60 Ejection Fraction: Normal Regional Wall Motion Abnormalities: None R. Ventricle Function: Normal Aortic Valve: Gradient 9 mm peak, 5 mm Mean. Mild perivalvular Mitral Valve: Unchanged Tricuspid: Unchanged Pulmonic: Unchanged Aortic Dissection: No
[2021-04-23 12:23] LABS: ALT 31 U/L (4-34); AST 70 U/L (14-36); African American GFR (CKD) >90 (>60 ml/min/1.73 sqM); Albumin 3.3 g/dL (3.5-5.0); Alkaline Phosphatase 71 U/L (38-126); Anion Gap 5 mmol/L; Blood Urea Nitrogen 20 mg/dL (7-17); Calcium 8.7 mg/dL (8.4-10.2); Carbon Dioxide 22 mmol/L (22-30); Chloride 111 mmol/L (98-107); Glucose 106 mg/dL (74-99); Non-African American GFR(CKD) 79 (>60 ml/min/1.73 sqM); Potassium 3.9 mmol/L (3.5-5.1); Sodium 138 mmol/L (137-145); Total Bilirubin 0.3 mg/dL (0.2-1.3); Total Protein 5.8 g/dL (6.3-8.2)
[2021-04-23 13:10] VITALS: BMI 26.1
--- NOTE | 2021-04-23 13:12 | P.CNPUL ---
History of Present Illness Consult date: 04/23/21 Requesting physician: Kal Priest Reason for consult: other (Status post TAVR) Chief complaint: Symptomatic aortic valve stenosis History of present illness: This is a 75-year-old female, recently diagnosed with severe symptomatic aortic valve stenosis, patient was seen by cardiology and by cardiothoracic surgery, and she underwent today percutaneous aortic valve implantation, transesophageal echocardiogram, and postoperatively the patient was transferred to the ICU, and I was asked to see her on consultation. Patient is doing well at present, she is on room air, does not seem to be in any distress. Denies any shortness of breath denies any chest pain no cough no wheezing. Denies any GI symptoms. Labs from today including relatively normal electrolytes and renal profile, and normal CBC. Review of Systems Constitutional: Negative HEENT: Negative Pulmonary: Negative Cardiac: Shortness of breath secondary to aortic stenosis. GI: Negative Hematologic: Negative Genitourinary: Negative Muscular skeletal: Negative Endocrine: Negative Neurologic: Negative Psychiatric: Negative Skin: Negative Past Medical History Past Medical History: Blood Disorder, Deep Vein Thrombosis (DVT), Hyperlipidemia, Hypertension, Osteoarthritis (OA) Additional Past Medical History / Comment(s): heart murmur, Factor V Leiden, HX DVT years ago from taking control History of Any Multi-Drug Resistant Organisms: ESBL Date of last positivie culture/infection: 04/10/21 MDRO Source:: ESBL URINE Past Surgical History: Appendectomy, Cholecystectomy, Hysterectomy, Joint Replacement, Orthopedic Surgery Additional Past Surgical History / Comment(s): total rt knee replacement,left shoulder arthroscopy, rt shoulder surgery, rt eye surgery for torn retina Past Anesthesia/Blood Transfusion Reactions: No Reported Reaction Smoking Status: Former smoker - Past Family History Mother Family Medical History: Cancer Sister(s) Family Medical History: Deep Vein Thrombosis (DVT), Pulmonary Embolus Daughter(s) Family Medical History: Deep Vein Thrombosis (DVT) Medications and Allergies Home Medications Medication Instructions Recorded Confirmed Type Cholecalciferol [Vitamin D3] 2,000 unit PO DAILY 12/31/15 04/23/21 History Multivitamins, Thera [Multivitamin] 1 tab PO DAILY 12/31/15 04/23/21 History NIFEdipine [Procardia XL] 60 mg PO DAILY 12/31/15 04/23/21 History Calcium Carbonate/Vitamin D3 1 cap PO DAILY 02/20/19 04/23/21 History [Calcium 600-Vit D3 500 Softgel] [place]-3 Fatty Acids/Fish Oil [Fish 1 cap PO HS 02/20/19 04/23/21 History Oil 1,000 mg Softgel] Rosuvastatin [Crestor] 10 mg PO HS 02/20/19 04/23/21 History Aspirin [Adult Low Dose Aspirin EC] 81 mg PO HS 03/24/21 04/23/21 History Baclofen 10 mg PO TID PRN 03/24/21 04/23/21 History Magnesium 250 mg PO DAILY 03/24/21 04/23/21 History Allergies Allergy/AdvReac Type Severity Reaction Status Date / Time Androgenic Anabolic Steroid Allergy Nausea & Verified 04/23/21 06:50 Vomiting codeine Allergy Chest Pain Verified 04/23/21 06:50 Tetanus Vaccines and Toxoid Allergy Swelling Verified 04/23/21 06:50 Physical Exam Vitals: Vital Signs Temp Pulse Resp BP BP BP Pulse Ox 04/23/21 07:08 98 F 67 18 132/68 182/60 138/62 94 L Intake and Output 04/22/21 04/23/21 04/23/21 22:59 06:59 14:59 Intake Total 150 Balance 150 Intake: IV 150 Other: Weight 69 kg Physical Exam revealed 75-year-old female in no distress, on room air. HEENT:[Neck is supple.] [No neck masses.] [No thyromegaly.] [No JVD.] Chest: [Clear throughout, no crackles, no rhonchi, no wheezes.] Cardiac Exam: [Normal S1 and S2, no S3 gallop, 2/6 systolic murmur thought the precordium. Abdomen: [Soft, nontender, no megaly, no rebound, no guarding, normal bowel sounds.] Extremities: [No clubbing, no edema, no cyanosis.] Neurological Exam: [No focal neurologic deficit.] Alert oriented 3. Psychiatric: Normal mood affect and normal mental status examination. Skin: No rashes. Results - Laboratory Findings CBC and BMP: 04/23/21 10:43 04/23/21 10:43 PT/INR, D-dimer PT 9.9 sec (9.0-12.0) 04/23/21 10:43 INR 0.9 (<1.2) 04/23/21 10:43 Abnormal lab findings: Abnormal Labs 04/21/21 04/23/21 04/23/21 16:34 06:50 10:43 RBC 3.78 L APTT Chloride 108 H BUN 24 H Glucose 103 H AST Total Protein Albumin Crossmatch See Detail 04/23/21 04/23/21 10:43 10:43 RBC APTT 21.2 L Chloride 111 H BUN 20 H Glucose 106 H AST 70 H Total Protein 5.8 L Albumin 3.3 L Crossmatch Assessment and Plan Assessment: Impression: Severe aortic stenosis, status post TAVR. Postoperative day #0. Benign essential hypertension Dyslipidemia Factor V Leyden deficiency History of degenerative joint disease. Recommendation: Continue present supportive care measures. Incentive spirometer. Resume home cardiac meds. Early ambulation. Possible discharge planning in the next 24 hours. We will continue to follow. Time with Patient: Greater than 30
--- NOTE | 2021-04-23 15:04 | OP ---
OPERATIVE REPORT DATE OF THE OPERATION: 04/23/2021. ATTENDING SURGEON: Dr. Jose A Vazquez. ATTENDING SUBSTATION DESIGN DRAFTSPERSON: Dr. Kal Priest. CARPENTRY FOREMAN SUBSTATION DESIGN DRAFTSPERSON: Dr. Jeffery Hilliard. PREOPERATIVE DIAGNOSIS: Severe aortic stenosis. POSTOPERATIVE DIAGNOSIS: Severe aortic stenosis. PROCEDURE: Transcatheter aortic valve replacement with a #29 mm Medtronic Evolut Pro Plus transcatheter aortic valve, placement of a left subclavian vein temporary pacemaker lead in the right ventricle via fluoroscopy, and intraoperative transesophageal echocardiogram. ANESTHESIA: General. BLOOD LOSS: 100 mL. SUMMARY: Patient was brought to the operating room, placed in supine position. Following administration of general endotracheal anesthetic, placement of an arterial line, adequate IV access, the body was prepped and draped in normal sterile fashion using chlorhexidine paint and sterile towels. In preparation for the TAVR procedure, the left subclavian vein was cannulated, guidewire passed under fluoroscopic vision. Dilator and sheath were placed. A temporary pacer lead, Medtronic model #[id number] 58 cm, serial #[id number] was positioned in the apex of the right ventricle. It was tested with a regular pacemaker for sensitivity and paced well at 1 millivolt on the pacemaker. Therefore it was secured at the skin level and was to be used for temporary pacing during the procedure and in the first 24 hours post procedure if needed. At this point, the remainder the TAVR procedure will be dictated by Dr. Kal Priest of Cardiology. Please note: I was present for the entire procedure and fully and completely deployed the 29 mm Evolut Pro Plus transcatheter valve in the correct anatomical position with excellent results. MMODL / IJN: [id number] /
--- NOTE | 2021-04-23 15:20 | XR ---
EXAMINATION TYPE: XR chest 1V portable DATE OF EXAM: 04/23/2021 COMPARISON: Chest x-ray 03/07/2021 HISTORY: Cough TECHNIQUE: Single frontal view of the chest is obtained. FINDINGS: There are overlying artifacts. There is no focal air space opacity, pleural effusion, or pn eumothorax seen. The cardiac silhouette size is within normal limits. The osseous structures are s table, patient is post right shoulder arthroplasty, post TAVR procedure. The aorta is dense. Surgical clips present in the right upper quadrant. IMPRESSION: No acute process.
[2021-04-23] MEDS: HEPARIN SODIUM,PORCINE/PF 5,000 UNIT/0.5 ML SYRINGE SQ SCH (20:52)
[2021-04-23] MEDS ORDERED: NON FORMULARY DRUG (Omega-3 Fatty Acids/Fish Oil [Fish Oil 1,000 Mg Softgel] 1 EACH Capsul PO SCH (21:00)
[2021-04-23] MEDS ORDERED: ATORVASTATIN 20 MG TAB PO SCH (21:00)
[2021-04-23] MEDS ORDERED: ASPIRIN 81 MG PO SCH (21:00)
[2021-04-24 05:08] LABS: Basophils # (A) 0.1 k/uL (0-0.2); Basophils % (A) 1 %; Eosinophils # (A) 0.1 k/uL (0-0.7); Eosinophils % (A) 1 %; HCT 39.3 % (34.0-46.0); HGB 12.9 gm/dL (11.4-16.0); Lymphocytes # (A) 0.7 k/uL (1.0-4.8); Lymphocytes % (A) 11 %; MCH 32.4 pg (25.0-35.0); MCHC 32.9 g/dL (31.0-37.0); MCV 98.4 fL (80.0-100.0); Mean Platelet Volume 8.1; Monocytes # (A) 0.4 k/uL (0-1.0); Monocytes % (A) 6 %; Neutrophils % (A) 80 %; Platelet Count 151 k/uL (150-450); RDW 12.7 % (11.5-15.5); WBC 6.2 k/uL (3.8-10.6)
[2021-04-24 05:23] LABS: ALT 30 U/L (4-34); AST 53 U/L (14-36); African American GFR (CKD) >90 (>60 ml/min/1.73 sqM); Albumin 3.6 g/dL (3.5-5.0); Alkaline Phosphatase 74 U/L (38-126); Anion Gap 5 mmol/L; Blood Urea Nitrogen 13 mg/dL (7-17); Calcium 9.5 mg/dL (8.4-10.2); Carbon Dioxide 24 mmol/L (22-30); Chloride 108 mmol/L (98-107); Glucose 97 mg/dL (74-99); Magnesium 2.1 mg/dL (1.6-2.3); Non-African American GFR(CKD) 80 (>60 ml/min/1.73 sqM); Potassium 3.8 mmol/L (3.5-5.1); Sodium 137 mmol/L (137-145); Total Bilirubin 0.6 mg/dL (0.2-1.3); Total Protein 6.2 g/dL (6.3-8.2)
[2021-04-24] MEDS: POTASSIUM CHLORIDE ER 20 MEQ TAB.ER PO STA ×2 (06:53→08:54)
[2021-04-24] MEDS: SODIUM CHLORIDE 0.9% 1,000 ML IV SCH (07:01)
[2021-04-24] MEDS ORDERED: PANTOPRAZOLE 40 MG TABLET PO SCH (07:30)
--- NOTE | 2021-04-24 07:59 | XR ---
EXAMINATION TYPE: XR chest 1V portable DATE OF EXAM: 04/24/2021 HISTORY: Shortness of breath. COMPARISON: 04/23/2021 TECHNIQUE: Single view of the chest is submitted. FINDINGS: Demonstrated are scattered senescent parenchymal change. There is no evidence for focal infiltrate. The heart is stable. Hilar and mediastinal structures are within normal limits. Degenerative changes are seen of the dorsal spine. IMPRESSION: 1. Chronic changes without evidence for acute pulmonary disease.
[2021-04-24] MEDS ORDERED: MAGNESIUM HYDROXIDE 2,400 MG/10 ML CUP PO PRN (09:00)
[2021-04-24] MEDS ORDERED: CHOLECALCIFEROL 25 MCG (1000 IU) TABLET PO SCH (09:00)
[2021-04-24] MEDS ORDERED: MULTIVITAMINS, THERA 1 EACH TAB PO SCH (09:00)
[2021-04-24] MEDS ORDERED: METOPROLOL TARTRATE 12.5 MG TAB PO SCH (09:00)
[2021-04-24] MEDS ORDERED: CALCIUM CARB-VIT D 500 MG-5 MCG TAB PO SCH (09:00)
[2021-04-24] MEDS ORDERED: MAGNESIUM OXIDE 400 MG TAB PO SCH (09:00)
[2021-04-24] MEDS ORDERED: bisacodyL 10 MG SUPP RECTAL PRN (09:00)
[2021-04-24] MEDS ORDERED: CLOPIDOGREL 75 MG TAB PO SCH (09:00)
[2021-04-24] MEDS: HEPARIN SODIUM,PORCINE/PF 5,000 UNIT/0.5 ML SYRINGE SQ SCH (09:06)
[2021-04-24 09:32] VITALS: TEMP 98.2
--- NOTE | 2021-04-24 10:51 | ECHOF ---
Referral Reason:post tavr MEASUREMENTS -------- HEIGHT: 162.6 cm WEIGHT: 68.9 kg BP: 128/68 RVIDd: 3.8 cm (< 3.3) IVSd: 1.4 cm (0.6 - 1.1) LVIDd: 2.9 cm (3.9 - 5.3) LVPWd: 1.3 cm (0.6 - 1.1) IVSs: 1.6 cm LVIDs: 2.0 cm LVPWs: 1.2 cm LAESV Index (A-L): 27.58 ml/m MV E Niranjan: 0.69 m/s MV DecT: 369 ms MV A Niranjan: 1.23 m/s MV E/A Ratio: 0.56 AV maxP.08 mmHg AV meanP.44 mmHg AR PHT: 423 ms RAP: 5.00 mmHg RVSP: 41.72 mmHg FINDINGS -------- Sinus rhythm. This was a technically adequate study. The left ventricular size is normal. There is mild concentric left ventricular hypertrophy. Overa ll left ventricular systolic function is normal with, an EF between 55 - 60 %. The right ventricle is mildly enlarged. Normal LA size by volume 22+/-6 ml/m2. The right atrial size is normal. Interatrial and interventricular septum intact. Mobile interatrial septum. The maximum velocity across the aortic valve is 2.18m/s. Peak/mean gradient across the Aortic Valve is 19.08mmHg / 9.44mmHg. Normally functioning bioprosthetic valve. S/P TAVR There is no aortic regurgitation noted. There is trace mitral regurgitation. Mild tricuspid regurgitation present. There is mild pulmonary hypertension. The right ventricular systolic pressure, as measured by Doppler, is 41.72mmHg. There is no pulmonic regurgitation present. The aortic root size is normal. IVC Not well visulized. There is no pericardial effusion. CONCLUSIONS -------- 1. The left ventricular size is normal. 2. There is mild concentric left ventricular hypertrophy. 3. Overall left ventricular systolic function is normal with, an EF between 55 - 60 %. 4. The right ventricle is mildly enlarged. 5. The maximum velocity across the aortic valve is 2.18m/s. 6. Peak/mean gradient across the Aortic Valve is 19.08mmHg / 9.44mmHg. 7. S/P TAVR 8. There is no aortic regurgitation noted. 9. There is trace mitral regurgitation. 10. Mild tricuspid regurgitation present. 11. There is mild pulmonary hypertension. 12. The right ventricular systolic pressure, as measured by Doppler, is 41.72mmHg. EMERGENCY CREW SUPERVISOR: Rosita Mahajan RDCS
--- NOTE | 2021-04-24 10:54 | CONS ---
CONSULTATION HISTORY OF PRESENT ILLNESS: This is a 75-year-old lady with a history of aortic stenosis who underwent a percutaneous aortic valve replacement yesterday by Dr. Priest and Taylor. She has hypertension as well. Post procedure she is doing well. Both her groins look very good. She is comfortable, resting and apparently she had an episode of bradycardia, but now she seems to be in sinus rhythm. She is doing well. An echo will be performed today and following the echo, patient will probably be discharged. She sees Dr. Su in the outpatient setting. She had a cardiac cath on March 27, which revealed no significant obstructive CAD, severe aortic stenosis, calcified coronary . PHYSICAL EXAMINATION: On examination, blood pressure is 118/70, pulse rate is 76 in sinus. No JVD. S1-S2 heard normally. Ejection systolic murmur at the base is audible. Lungs reveal decent air entry. Abdomen is soft, nontender. Lower extremities reveal normal pulses. Both groins are clean and dry. Central nervous system grossly within normal limits. IMPRESSION: 1. Severe aortic stenosis, status post percutaneous aortic valve replacement. 2. Hypertension. 3. Calcified noncritical coronary artery disease. RECOMMENDATIONS: I am recommending that we continue current medications. Apparently patient had issues with bradycardia and therefore we will hold the beta venessa. Patient will have echocardiogram and if the findings are reasonable, she can potentially be discharged. She will follow up with Dr. Su in 1 week. MMODL / IJN: [id number] /
--- NOTE | 2021-04-24 11:00 | P.DS ---
Providers Date of admission: 04/23/21 06:32 Expected date of discharge: 04/24/21 Attending physician: Kal Priest Consults: 04/22/21 08:52 Consult to Anesthesia Routine Consulting Provider: Anesthesia,Services Consult Reason/Comments: Cardiac Surgery Pre-Op 04/23/21 10:21 Consult Physician Routine Consulting Provider: Jose A Vazquez Consult Reason/Comments: tavr Do you want consulting provider notified?: Already Contacted Consult Physician Routine Consulting Provider: Loida Valdovinos Consult Reason/Comments: Development Mechanic Consult: post cardiac surgery Do you want consulting provider notified?: Yes Primary care physician: [facility] Course: MEDICAL HISTORY: 1. Calcified aortic valve with severe symptomatic aortic valve stenosis 2. History of hypertension 3. History of hyperlipidemia 4. History of DVT, factor V Leiden carrier 5. Remote history of pneumonia 6. Previous tobacco dependence 7. Social EtOH use 8. Family history of premature coronary artery disease PROCEDURE: 1. Percutaneous aortic valve implantation using a 29 mm Core Valve Evolute-Pro Plus under MILLICENT and fluoroscopy guidance 2. Transesophageal echocardiography performed by anesthesia 3. Ultrasound-guided access and repair of right and left femoral arteries access site by Perclose closure device 4. Placement of left subclavian vein temporary pacemaker lead in the right ventricle via fluoroscopy 5. Selective bilateral common femoral artery angiogram 6. Aortic root angiography HISTORY OF PRESENT ILLNESS: This is a 75-year-old female who follows on an outpatient basis with Dr. Long for primary care and Dr. Su for cardiology. She has a known history of severe aortic stenosis and has been symptomatic with increased exertional dyspnea as well as fatigue. She had been referred to the structural heart clinic for evaluation for transcatheter aortic valve replacement after heart catheterization and transesophageal echocardiogram were completed. Echocardiography demonstrated a calcified 3 leaflet aortic valve with aortic valve area 0.75 cm, peak/mean gradient 87/53 mmHg, peak velocity 4.65 m/s, mild to moderate aortic regurgitation, mild mitral and tricuspid regurgitation, and preserved left ventricular systolic function with EF 55-60%. Heart catheterization demonstrated mild CAD in the RCA and left circumflex with aortic valve area 0.6-0.9 cm. After workup was completed STS risk score was calculated along with incremental risk and the patient was felt to be better served with transcatheter aortic valve replacement then surgical aortic valve replacement. The usual course of TAVR was discussed in detail the patient and her family, risks and benefits were reviewed, shared decision making between cardiology, surgery, and the patient/family took place, and the patient consented to proceed with the procedure. HOSPITAL COURSE: The patient was brought to the hospital on 04/1721, taken to the extended stay area, prepared in the usual fashion, and subsequently taken to the cardiac catheterization laboratory where Dr. Priest and Dr. Vazquez completed TAVR procedure under general anesthesia with fluoroscopy and MILLICENT. The valve was deployed under rapid ventricular pacing and proceeded without event. At the end of the procedure there was peak/mean gradient 9/5 mmHg and mild perivalvular leak, which was felt to be acceptable. Upon completion of the procedure the patient was extubated and was transferred to the cardiovascular intensive care unit where she was recovered and monitored hemodynamically. Her oxygen was titrated down, she was tolerating oral diet, her pain was controlled, follow-up TTE demonstrated normally functioning bioprosthetic valve with peak/mean gradient across the aortic valve 19/9.44 mmHg, maximum velocity 2.18 years per second, no aortic regurgitation, and normal left ventricular systolic function with EF 55-60%, and she was ready to be discharged to home on postoperative day #1. She received written and verbal instruction regarding her medications, activity restrictions, signs and symptoms requiring physician notification, and follow-up appointments. Patient Condition at Discharge: Stable Plan - Discharge Summary Discharge Rx Participant: Yes New Discharge Prescriptions: New Clopidogrel [Plavix] 75 mg PO DAILY #30 tab Acetaminophen Tab [Tylenol] 650 mg PO Q4HR PRN tab PRN Reason: Fever And/ Or Mild Pain (1-3) Continue Multivitamins, Thera [Multivitamin (formulary)] 1 tab PO DAILY Cholecalciferol [Vitamin D3 (25 Mcg = 1000 Iu)] 2,000 unit PO DAILY NIFEdipine [Procardia XL] 60 mg PO DAILY Galvin-3 Fatty Acids/Fish Oil [Fish Oil 1,000 mg Softgel] 1 cap PO HS Calcium Carbonate/Vitamin D3 [Calcium 600-Vit D3 12.5 Mcg (500 Iu)] 1 cap PO DAILY Rosuvastatin [Crestor] 10 mg PO HS Aspirin [Adult Low Dose Aspirin EC] 81 mg PO HS Magnesium 250 mg PO DAILY Baclofen 10 mg PO TID PRN PRN Reason: Pain Discharge Medication List Cholecalciferol [Vitamin D3 (25 Mcg = 1000 Iu)] 2,000 unit PO DAILY 12/31/15 [History] Multivitamins, Thera [Multivitamin (formulary)] 1 tab PO DAILY 12/31/15 [History] NIFEdipine [Procardia XL] 60 mg PO DAILY 12/31/15 [History] Calcium Carbonate/Vitamin D3 [Calcium 600-Vit D3 12.5 Mcg (500 Iu)] 1 cap PO DAILY 02/20/19 [History] Galvin-3 Fatty Acids/Fish Oil [Fish Oil 1,000 mg Softgel] 1 cap PO HS 02/20/19 [History] Rosuvastatin [Crestor] 10 mg PO HS 02/20/19 [History] Aspirin [Adult Low Dose Aspirin EC] 81 mg PO HS 03/24/21 [History] Baclofen 10 mg PO TID PRN 03/24/21 [History] Magnesium 250 mg PO DAILY 03/24/21 [History] Acetaminophen Tab [Tylenol] 650 mg PO Q4HR PRN tab 04/24/21 [Rx] Clopidogrel [Plavix] 75 mg PO DAILY #30 tab 04/24/21 [Rx] Follow up Appointment(s)/Referral(s): Alfonso Su MD [STAFF PHYSICIAN] - 04/28/21 4:15 pm (Your April 28 appointment will be for a groin check. You will also have an appointment 05/29/2021 at 9:30 for 30 day post TAVR echocardiogram and follow-up appointme nt) Boby Long DO [Primary Care Provider] - As Needed Kike Jang NPC [Nurse Practitioner] - 05/29/21 11:00 am (You will be seen in the TAVR clinic office in [facility] behind [facility], [address] [place] [address]. [address]. Please come after your appointment/echo with Dr. Su) Activity/Diet/Wound Care/Special Instructions: DISCHARGE INSTRUCTIONS: 1. No driving for 1 week, or until physician gives their ok. 2. No lifting, pushing, or pulling more than 5-10 pounds for 1 week. 3. Hold both groins when you cough or sneeze for the next 2 weeks. Bruising is common, but report increased swelling, pain or fever >101F 4. Shower daily. No pool, hot tub, or bathtub for 1 week 5. No powders, lotions, ointments on incisions. 6. No straining, including for bowel movements. Use stool softner if necessary 7. Stairs are not an issue. Go slowly, using handrail and take 1 step at a time. Ambulate several times daily 8. Continue pain control per as needed orders. 9. Take only the medications listed on your discharge form 10. Eat low salt (limited to 2 grams or 2000 milligrams) daily, avoid adding salt, avoid canned/processed foods 11. Take your weight daily in the morning and record, bring with you to your follow up appointments 12. Keep all follow up appointments. You will need a valve clinic appointment at 30 days and 1 year post procedure for follow up 13. You have been referred to and are expected to begin Cardiac Rehab in approximately 4 weeks. 14. You will need antibiotics prior to any dental work, including cleanings, and any surgeries to prevent Endocarditis (bacterial infection in your heart) For any questions or concerns please call your valve coordinators: Carolina or Umberto @ Discharge Disposition: HOME SELF-CARE
[2021-04-24 11:01] VITALS: BP 128/67; PULSE 84; RESP 14
--- NOTE | 2021-04-24 12:48 | P.PN ---
Subjective Progress Note Date: 04/24/21 Principal diagnosis: Severe aortic stenosis, status post T aVR. Postoperative day #1. This is a 75-year-old female, recently diagnosed with severe symptomatic aortic valve stenosis, patient was seen by cardiology and by cardiothoracic surgery, and she underwent today percutaneous aortic valve implantation, transesophageal echocardiogram, and postoperatively the patient was transferred to the ICU, and I was asked to see her on consultation. Patient is doing well at present, she is on room air, does not seem to be in any distress. Denies any shortness of breath denies any chest pain no cough no wheezing. Denies any GI symptoms. Labs from today including relatively normal electrolytes and renal profile, and normal CBC. Reevaluated today on 04/24/2021, patient remains in the ICU, doing great, asymptomatic, hemodynamically stable, not in any distress, patient will likely be discharged home today. Objective - Vital Signs Vital signs: Vital Signs Temp 98.2 F 04/24/21 09:00 Pulse 84 04/24/21 11:00 Resp 14 04/24/21 11:00 BP 128/67 04/24/21 10:00 Pulse Ox 96 04/24/21 11:00 Intake & Output 04/23/21 04/24/21 04/24/21 18:59 06:59 18:59 Intake Total 350 100 340 Output Total 400 1100 900 Balance -50 -1000 -560 Weight 69 kg 71 kg Intake: Intake, IV Titration 150 50 50 Amount ceFAZolin 2 gm In Sodium 150 50 50 Chloride 0.9% 50 ml @ 100 mls/hr IVPB Q8HR [facility] Rx# :[id number] Oral 200 50 290 Output: Urine 400 1100 900 Other: Voiding Method Toilet Toilet Toilet Bedside Commode Bedside Commode Bedside Commode ABP, PAP, CO, CI - Last Documented Arterial Blood Pressure 127/57 - Exam Physical Exam revealed 75-year-old female in no distress, on room air. HEENT:[Neck is supple.] [No neck masses.] [No thyromegaly.] [No JVD.] Chest: [Clear throughout, no crackles, no rhonchi, no wheezes.] Cardiac Exam: [Normal S1 and S2, no S3 gallop, 2/6 systolic murmur thought the precordium. Abdomen: [Soft, nontender, no megaly, no rebound, no guarding, normal bowel sounds.] Extremities: [No clubbing, no edema, no cyanosis.] Neurological Exam: [No focal neurologic deficit.] Alert oriented 3. Psychiatric: Normal mood affect and normal mental status examination. Skin: No rashes. - Labs CBC & Chem 7: 04/24/21 04:35 04/24/21 04:35 Labs: Abnormal Lab Results - Last 24 Hours (Table) 04/21/21 04/24/21 04/24/21 Range/Units 16:34 04:35 04:35 Lymphocytes # 0.7 L (1.0-4.8) k/uL Chloride 108 H (98-107) mmol/L AST 53 H (14-36) U/L Total Protein 6.2 L (6.3-8.2) g/dL Crossmatch See Detail Assessment and Plan Assessment: Impression: Severe aortic stenosis, status post TAVR. Postoperative day #1 Benign essential hypertension Dyslipidemia Factor V Leyden deficiency History of degenerative joint disease. Recommendation: Agree with discharge planning home today. Incentive spirometer. Resume home cardiac meds. Time with Patient: Less than 30
[2021-04-24] MEDS ORDERED: SENNOSIDES-DOCUSATE SODIUM 1 EACH TAB PO SCH (21:00)
== END 2021-04-24 12:57 | disposition home or self-care (01) | DRG 267 ==
LOC: 2ORMAIN 06:32 → 2SICU 10:04
PROVIDERS: ADMIT Internal Medicine Interventional Cardiology; ATTEND Internal Medicine Interventional Cardiology
PROC: 04QK0ZZ Repair Right Femoral Artery, Open Approach (ICD-10-PCS; 2021-04-23)
PROC: 5A1223Z Performance of Cardiac Pacing, Continuous (ICD-10-PCS; 2021-04-23)
PROC: B3101ZZ Fluoroscopy of Thoracic Aorta using Low Osmolar Contrast (ICD-10-PCS; 2021-04-23)
PROC: B246ZZ4 Ultrasonography of Right and Left Heart, Transesophageal (ICD-10-PCS; 2021-04-23)
PROC: B41G1ZZ Fluoroscopy of Left Lower Extremity Arteries using Low Osmolar Contrast (ICD-10-PCS; 2021-04-23)
PROC: B41F1ZZ Fluoroscopy of Right Lower Extremity Arteries using Low Osmolar Contrast (ICD-10-PCS; 2021-04-23)
PROC: 02RF38Z Replacement of Aortic Valve with Zooplastic Tissue, Percutaneous Approach (ICD-10-PCS; principal; 2021-04-23 08:30)
DX: I08.3 Combined rheumatic disorders of mitral, aortic and tricuspid valves (principal); D68.51 Activated protein C resistance; I25.10 Atherosclerotic heart disease of native coronary artery without angina pectoris; R00.1 Bradycardia, unspecified; E78.5 Hyperlipidemia, unspecified; I10 Essential (primary) hypertension; Z20.822 Contact with and (suspected) exposure to COVID-19; M19.90 Unspecified osteoarthritis, unspecified site; Z00.6 Encounter for examination for normal comparison and control in clinical research program; Z79.82 Long term (current) use of aspirin; Z79.899 Other long term (current) drug therapy; Z86.718 Personal history of other venous thrombosis and embolism; Z87.01 Personal history of pneumonia (recurrent); Z87.891 Personal history of nicotine dependence; Z90.710 Acquired absence of both cervix and uterus; Z96.651 Presence of right artificial knee joint; Z90.49 Acquired absence of other specified parts of digestive tract; Z88.5 Allergy status to narcotic agent; Z88.7 Allergy status to serum and vaccine
CPT/HCPCS: 33361; 71045; 80048; 80053; 82330; 83735; 85025; 85610; 85730; 86850; 86891; 86900; 86901; 86920; 87635; 93306; 93312; 93320; 93325

== ENCOUNTER → 2022-02-10 | Outpatient (CLI) | payer MEDICARE ==
--- NOTE | 2022-02-20 09:15 | MM ---
Reason for Exam: Screening (asymptomatic). Last screening mammogram was performed 12 month(s) ago. Patient History: Menarche at age 11. First Full-Term at age 19. Left ovary removed at age 46. Right ovary removed at age 46. Hysterectomy at age 46. Postmenopausal. Estrogen for 15 years until age 55. Progesterone for 15 years until age 55. Risk Values: Crystal 5 year model risk: 1.5%. NCI Lifetime model risk: 2.8%. Prior Study Comparison: 08/01/2018 Bilateral Screening Mammogram, [facility]. 11/28/2019 Bilateral Screening Mammogram, [facility]. 02/07/2021 Bilateral Screening Mammogram, [facility]. Tissue Density: The breast tissue is heterogeneously dense. This may lower the sensitivity of mammography. Findings: Analyzed By CAD. There is no suspicious group of microcalcifications or new suspicious mass in either breast. Overall Assessment: Benign, BI-RAD 2 Management: Screening Mammogram of both breasts in 1 year. A clinical breast exam by your physician is recommended on an annual basis and results should be correlated with mammographic findings. Electronically signed and approved by: Remberto Leong M.D. Radiologis
== END | disposition home or self-care (01) ==
LOC: RADMAMWWP 21:24
PROVIDERS: ATTEND Family Medicine
DX: Z12.31 Encounter for screening mammogram for malignant neoplasm of breast (principal); Z78.0 Asymptomatic menopausal state
CPT/HCPCS: 77063; 77067

== ENCOUNTER → 2022-03-24 | Outpatient (CLI) | payer MEDICARE ==
[2022-03-24 13:54] LABS: HCT 41.8 % (34.0-46.0); MCH 33.3 pg (25.0-35.0); MCHC 33.6 g/dL (31.0-37.0); Mean Platelet Volume 8.7; Platelet Count 179 k/uL (150-450); RBC 4.22 m/uL (3.80-5.40); RDW 12.4 % (11.5-15.5); WBC 6.1 k/uL (3.8-10.6)
[2022-03-24 14:03] LABS: African American GFR (CKD) 56 (>60 ml/min/1.73 sqM); Anion Gap 9 mmol/L; Blood Urea Nitrogen 23 mg/dL (7-17); Calcium 9.7 mg/dL (8.4-10.2); Carbon Dioxide 27 mmol/L (22-30); Chloride 105 mmol/L (98-107); Glucose 95 mg/dL (74-99); Non-African American GFR(CKD) 48 (>60 ml/min/1.73 sqM); Potassium 4.4 mmol/L (3.5-5.1); Sodium 141 mmol/L (137-145)
== END | disposition home or self-care (01) ==
LOC: LABWHC1 13:32
PROVIDERS: ATTEND Nurse Practitioner Acute Care
DX: Z95.2 Presence of prosthetic heart valve (principal)
CPT/HCPCS: 36415; 80048; 85027

== ENCOUNTER → 2022-08-26 | Outpatient (CLI) | payer MEDICARE ==
[2022-08-27 14:29] LABS: Pecan IgE <0.10 kU/L (<0.10); Pecan IgE Class CLASS 0
[2022-08-27 14:30] LABS: Meadow Fescue IgE <0.10 kU/L (<0.10); Meadow Fescue IgE Class CLASS 0; Timothy Grass IgE <0.10 kU/L (<0.10); Timothy Grass IgE Class CLASS 0
[2022-08-27 14:31] LABS: Bermuda Grass IgE <0.10 kU/L (<0.10); Meadow Grs (KY blue) IgE <0.10 kU/L (<0.10); Meadow Grs (KY blue) IgE Class CLASS 0; Penicillium notatum IgE Class CLASS 0
[2022-08-27 14:32] LABS: Beech IgE <0.10 kU/L (<0.10); Beech IgE Class CLASS 0; Clad herbarum IgE <0.10 kU/L (<0.10); Clad herbarum IgE Class CLASS 0; Cottonwood IgE <0.10 kU/L (<0.10); Goldenrod IgE <0.10 kU/L (<0.10); Goldenrod IgE Class CLASS 0; Sycamore(Mpl.Lf) IgE <0.10 kU/L (<0.10); Sycamore(Mpl.Lf) IgE Class CLASS 0; Willow Tree IgE <0.10 kU/L (<0.10); Willow Tree IgE Class CLASS 0
[2022-08-27 14:33] LABS: English Plantain IgE Class CLASS 0; Lamb's Quarter IgE <0.10 kU/L (<0.10); Lamb's Quarter IgE Class CLASS 0; Ragweed, Giant IgE <0.10 kU/L (<0.10); Ragweed, Giant IgE Class CLASS 0; Sheep Sorrel IgE <0.10 kU/L (<0.10); Sheep Sorrel IgE Class CLASS 0
[2022-08-28 00:01] LABS: Alternaria alternata IgE <0.10 kU/L; Aspergillus fumagatus IgE <0.10 kU/L; Birch IgE <0.10 kU/L; Cat Epith & Dander IgE <0.10 kU/L; Dermato. farinae IgE <0.10 kU/L; Ragweed,Common IgE <0.10 kU/L
== END | disposition home or self-care (01) ==
LOC: LABWHC1 11:14
PROVIDERS: ATTEND Internal Medicine
DX: J30.9 Allergic rhinitis, unspecified (principal)
CPT/HCPCS: 36415; 86003

== ENCOUNTER → 2023-03-16 | Outpatient (CLI) | payer MEDICARE ==
--- NOTE | 2023-03-17 09:36 | MM ---
Reason for Exam: Screening (asymptomatic). Last mammogram was performed 1 year(s) and 1 month(s) ago. Patient History: Menarche at age 11. First Full-Term at age 19. Left ovary removed at age 46. Right ovary removed at age 46. Hysterectomy at age 46. Postmenopausal. Patient has history of breast feeding. Estrogen for 15 years until age 55. Progesterone for 15 years until age 55. Risk Values: Crystal 5 year model risk: 1.5%. NCI Lifetime model risk: 2.5%. Prior Study Comparison: 11/28/2019 Bilateral Screening Mammogram, [facility]. 02/07/2021 Bilateral Screening Mammogram, [facility]. 02/10/2022 Bilateral MG 3D screening mammo w/cad, [facility]. Tissue Density: The breast tissue is heterogeneously dense. This may lower the sensitivity of mammography. Findings: Analyzed By CAD. There is no suspicious group of microcalcifications or new suspicious mass in either breast. Overall Assessment: Benign, BI-RAD 2 Management: Screening Mammogram of both breasts in 1 year. . Patient should continue monthly self-breast exams. A clinical breast exam by your physician is recommended on an annual basis. This exam should not preclude additional follow-up of suspicious palpable abnormalities. Note on Crystal scores and lifetime risk: 1. A Crystal score greater than 3% is considered moderate risk. If this is the case, consider specialist referral to assess eligibility for a risk reducing agent. 2. If overall lifetime risk for the development of breast cancer is 20% or higher, the patient may qualify for future screening with alternating mammogram and breast MRI. Electronically signed and approved by: Remberto Leong M.D. Radiologis
== END | disposition home or self-care (01) ==
LOC: RADMAMWWP 09:14
PROVIDERS: ATTEND Family Medicine
DX: Z12.31 Encounter for screening mammogram for malignant neoplasm of breast (principal); Z78.0 Asymptomatic menopausal state
CPT/HCPCS: 77063; 77067

== ENCOUNTER 2023-07-06 10:32 | Inpatient (IN) | payer MEDICARE ==
[2023-07-06 10:38] LABS: Glucose,Whole Blood 120 mg/dL (70-110)
--- NOTE | 2023-07-06 10:40 | ED ---
General Adult HPI - General Chief complaint: Neuro Symptoms/Deficit Stated complaint: Stroke Symtoms Time Seen by Provider: 07/06/23 10:34 Source: patient, RN notes reviewed, old records reviewed Mode of arrival: ambulatory Limitations: no limitations - History of Present Illness Initial comments: 77-year-old female presenting with confusion and speech abnormality. According to paramedics patient woke with the symptoms of confusion and slurred speech. According to paramedics she had gone to bed in her usual state of health and her daughter had checked on her this morning and noted the abnormality. Paramedics suspected weakness on the right upper extremity this was resolved at the time of my initial evaluation. - Related Data Home Medications Medication Instructions Recorded Confirmed Cholecalciferol [Vitamin D3 (25 2,000 unit PO DAILY 12/31/15 04/23/21 Mcg = 1000 Iu)] Multivitamins, Thera [Multivitamin 1 tab PO DAILY 12/31/15 04/23/21 (formulary)] NIFEdipine [Procardia XL] 60 mg PO DAILY 12/31/15 04/23/21 [place]-3 Fatty Acids/Fish Oil [Fish 1 cap PO HS 02/20/19 04/23/21 Oil 1,000 mg Softgel] Rosuvastatin [Crestor] 10 mg PO HS 02/20/19 04/23/21 Baclofen 10 mg PO TID PRN 03/24/21 04/23/21 Magnesium 250 mg PO DAILY 03/24/21 04/23/21 Calcium Carbonate [Calcium] 600 mg PO DAILY 07/06/23 07/06/23 Metoprolol Tartrate [Lopressor] 12.5 mg PO BID 07/06/23 07/06/23 diphenhydrAMINE HCL [Benadryl] 25 mg PO HS PRN 07/06/23 07/06/23 Allergies Allergy/AdvReac Type Severity Reaction Status Date / Time Tetanus Vaccines and Toxoid Allergy Swelling Verified 07/06/23 13:48 Androgenic Anabolic Steroid AdvReac Nausea & Verified 07/06/23 13:48 Vomiting codeine AdvReac Chest Pain Verified 07/06/23 13:48 Review of Systems ROS Statement: Those systems with pertinent positive or pertinent negative responses have been documented in the HPI. ROS Other: All systems not noted in ROS Statement are negative. Past Medical History Past Medical History: Blood Disorder, Deep Vein Thrombosis (DVT), Hyperlipidemia, Hypertension, Osteoarthritis (OA) Additional Past Medical History / Comment(s): heart murmur, Factor V Leiden, HX DVT years ago from taking control History of Any Multi-Drug Resistant Organisms: ESBL Date of last positivie culture/infection: 04/10/21 MDRO Source:: ESBL URINE Past Surgical History: Appendectomy, Cholecystectomy, Hysterectomy, Joint Replacement, Orthopedic Surgery Additional Past Surgical History / Comment(s): total rt knee replacement,left shoulder arthroscopy, rt shoulder surgery, rt eye surgery for torn retina Past Anesthesia/Blood Transfusion Reactions: No Reported Reaction Past Psychological History: No Psychological Hx Reported Smoking Status: Former smoker - Past Family History Mother Family Medical History: Cancer Sister(s) Family Medical History: Deep Vein Thrombosis (DVT), Pulmonary Embolus Daughter(s) Family Medical History: Deep Vein Thrombosis (DVT) General Exam Limitations: no limitations General appearance: alert, in no apparent distress Head exam: Present: atraumatic, normocephalic Eye exam: Present: normal appearance, PERRL Neck exam: Present: normal inspection. Absent: tenderness, meningismus Respiratory exam: Present: normal lung sounds bilaterally. Absent: respiratory distress, wheezes Cardiovascular Exam: Present: regular rate, normal rhythm GI/Abdominal exam: Present: soft. Absent: distended, tenderness Extremities exam: Present: normal inspection Neurological exam: Present: alert, oriented X3, motor sensory deficit (Mild expressive aphasia and dysarthria, no limb weakness NIH of 2). Absent: CN II- XII intact Psychiatric exam: Present: normal affect, normal mood Skin exam: Present: warm, dry, intact. Absent: cyanosis, diaphoretic, erythema Course Vital Signs 07/06/23 07/06/23 10:34 13:00 Temperature 98.4 F Pulse Rate 53 L Respiratory 18 16 Rate Blood Pressure 150/96 184/81 O2 Sat by Pulse 97 95 Oximetry Medical Decision Making - Medical Decision Making Was pt. sent in by a medical professional or institution (, PA, HARDBOARD PRESS OPERATOR, urgent care, hospital, or assisted...) When possible be specific @ -No Did you speak to anyone other than the patient for history (EMS, parent, family, police, friend...)? What history was obtained from this source @ -Patient's daughter who states that she was mildly confused last night. And woke up this morning with increased weakness and confusion as well as some slurred speech. Did you review nursing and triage notes (agree or disagree)? Why? @ -I reviewed and agree with nursing and triage notes Were old charts reviewed (outside hosp., previous admission, EMS record, old EKG, old radiological studies, urgent care reports/EKG's, assisted records)? Report findings @ -No old charts were reviewed Differential Diagnosis (chest pain, altered mental status, abdominal pain women, abdominal pain men, vaginal bleeding, weakness, fever, dyspnea, syncope, headache, dizziness, GI bleed, back pain, seizure, CVA, palpatations, mental health, musculoskeletal)? @ -Differential CVA Ischemic stroke, hemorrhagic stroke, brain tumor, atypical migraine, Wernicke's encephalopathy, seizure, multiple sclerosis, meningitis, encephalitis, hypoglycemia, Guillain-Segovia, electrolytes disturbance, myasthenia gravis.... This is not meant to be an all-inclusive list EKG interpreted by me (3pts min.). @ -Sinus bradycardia with a first-degree AV block rate of 58, NM interval 212, QRS duration 73, Q TC [address] segment elevation. X-rays interpreted by me (1pt min.). @ -Chest x-ray negative for acute cardiopulmonary findings CT interpreted by me (1pt min.). @ -CT brain negative for intracranial hemorrhage or mass effect, CT angiography negative for acute occlusion or stenosis. U/S interpreted by me (1pt. min.). @ -None done What testing was considered but not performed or refused? (CT, X-rays, U/S, labs)? Why? @ -None What meds were considered but not given or refused? Why? @ -None Did you discuss the management of the patient with other professionals (professionals i.e. DrBill, PA, HARDBOARD PRESS OPERATOR, lab, RT, psych nurse, social service director, sewing machine operator zipper, teacher, supervisor dog license officer, supervisor case loading)? Give summary @Case discussed with the neuro interventionalists Dr. Patton, at 1048, patient not a thrombolytic or thrombectomy candidate secondary to low NIH, improving symptoms and unknown onset. Case discussed with Dr. Escobar who will admit. Was smoking cessation discussed for >3mins.? @ -No Was critical care preformed (if so, how long)? @Yes, 35 minutes Were there social determinants of health that impacted care today? How? (Ho melessness, low income, unemployed, alcoholism, drug addiction, transportation, low edu. Level, literacy, decrease access to med. care, fpc, rehab)? @ -No Was there de-escalation of care discussed even if they declined (Discuss DNR or withdrawal of care, Hospice)? DNR status @ -No What co-morbidities impacted this encounter? (DM, HTN, Smoking, COPD, CAD, Cancer, CVA, ARF, Chemo, Hep., AIDS, mental health diagnosis, sleep apnea, morbid obesity)? @ -None Was patient admitted / discharged? Hospital course, mention meds given and route, prescriptions, significant lab abnormalities, going to OR and other pertinent info. @ -77-year-old female with confusion, dysarthria and expressive aphasia. Patient had apparently had some right limb weakness as well which was resolved. She is evaluated as a code stroke, taken immediately to CT where she received CT of the brain with and without contrast. These are negative for acute CVA, stenosis or aneurysmal change. Patient has normal CBC, normal CMP, negative urinalysis. Symptoms are concerning for acute CVA and the patient will be admitted to internal medicine with neurology on consult. Undiagnosed new problem with uncertain prognosis? @ -No Drug Therapy requiring intensive monitoring for toxicity (Heparin, Nitro, Insulin, Cardizem)? @ -No Were any procedures done? @ -No Diagnosis/symptom? @ -[CVA Acute, or Chronic, or Acute on Chronic? @ -Acute Uncomplicated (without systemic symptoms) or Complicated (systemic symptoms)? @ -Complicated Side effects of treatment? @ -[No Exacerbation, Progression, or Severe Exacerbation? @ -No Poses a threat to life or bodily function? How? (Chest pain, [place], [place], pneumonia, PE, COPD, DKA, ARF, appy, cholecystitis, CVA, Diverticulitis, Homicidal, Suicidal, threat to staff... and all critical care pts) @ -Yes, CVA - Lab Data Result diagrams: 07/06/23 10:30 07/06/23 10:30 Lab Results 07/06/23 07/06/23 07/06/23 Range/Units 10:30 10:30 10:30 WBC 6.5 (3.8-10.6) k/uL RBC 4.21 (3.80-5.40) m/uL Hgb 13.9 (11.4-16.0) gm/dL Hct 41.6 (34.0-46.0) % MCV 98.8 (80.0-100.0) fL MCH 32.9 (25.0-35.0) pg MCHC 33.3 (31.0-37.0) g/dL RDW 12.6 (11.5-15.5) % Plt Count 269 (150-450) k/uL MPV 7.8 Neutrophils % 70 % Lymphocytes % 21 % Monocytes % 4 % Eosinophils % 2 % Basophils % 1 % Neutrophils # 4.5 (1.3-7.7) k/uL Lymphocytes # 1.4 (1.0-4.8) k/uL Monocytes # 0.3 (0-1.0) k/uL Eosinophils # 0.2 (0-0.7) k/uL Basophils # 0.1 (0-0.2) k/uL PT (10.0-12.5) sec INR (<1.2) APTT (22.0-30.0) sec Sodium 143 (137-145) mmol/L Potassium 3.7 (3.5-5.1) mmol/L Chloride 113 H (98-107) mmol/L Carbon Dioxide 23 (22-30) mmol/L Anion Gap 7 mmol/L BUN 17 (7-17) mg/dL Creatinine 0.79 (0.52-1.04) mg/dL Est GFR (CKD-EPI)AfAm 83 (>60 ml/min/1.73 sqM) Est GFR (CKD-EPI)NonAf 72 (>60 ml/min/1.73 sqM) Glucose 130 H (74-99) mg/dL POC Glucose (mg/dL) (70-110) mg/dL POC Glu Sed Special Education Teacher ID Calcium 9.8 (8.4-10.2) mg/dL Total Bilirubin 0.6 (0.2-1.3) mg/dL AST 34 (14-36) U/L ALT 27 (4-34) U/L Alkaline Phosphatase 99 (38-126) U/L Creatine Kinase 65 (30-135) U/L Troponin I <0.012 (0.000-0.034) ng/mL Total Protein 7.3 (6.3-8.2) g/dL Albumin 4.5 (3.5-5.0) g/dL Urine Color Urine Appearance (Clear) Urine pH (5.0-8.0) Ur Specific [place] (1.001-1.035) Urine Protein (Negative) Urine Glucose (UA) (Negative) Urine Ketones (Negative) Urine Blood (Negative) Urine Nitrite (Negative) Urine Bilirubin (Negative) Urine Urobilinogen (<2.0) mg/dL Ur Leukocyte Esterase (Negative) Influenza Type A (PCR) (Not Detectd) Influenza Type B (PCR) (Not Detectd) RSV (PCR) (Not Detectd) SARS-CoV-2 (PCR) (Not Detectd) 07/06/23 07/06/23 07/06/23 Range/Units 10:37 10:39 10:39 WBC (3.8-10.6) k/uL RBC (3.80-5.40) m/uL Hgb (11.4-16.0) gm/dL Hct (34.0-46.0) % MCV (80.0-100.0) fL MCH (25.0-35.0) pg MCHC (31.0-37.0) g/dL RDW (11.5-15.5) % Plt Count (150-450) k/uL MPV Neutrophils % % Lymphocytes % % Monocytes % % Eosinophils % % Basophils % % Neutrophils # (1.3-7.7) k/uL Lymphocytes # (1.0-4.8) k/uL Monocytes # (0-1.0) k/uL Eosinophils # (0-0.7) k/uL Basophils # (0-0.2) k/uL PT (10.0-12.5) sec INR (<1.2) APTT (22.0-30.0) sec Sodium (137-145) mmol/L Potassium (3.5-5.1) mmol/L Chloride (98-107) mmol/L Carbon Dioxide (22-30) mmol/L Anion Gap mmol/L BUN (7-17) mg/dL Creatinine (0.52-1.04) mg/dL Est GFR (CKD-EPI)AfAm (>60 ml/min/1.73 sqM) Est GFR (CKD-EPI)NonAf (>60 ml/min/1.73 sqM) Glucose (74-99) mg/dL POC Glucose (mg/dL) 120 H (70-110) mg/dL POC Glu Sed Special Education Teacher Jose L Lam Calcium (8.4-10.2) mg/dL Total Bilirubin (0.2-1.3) mg/dL AST (14-36) U/L ALT (4-34) U/L Alkaline Phosphatase (38-126) U/L Creatine Kinase (30-135) U/L Troponin I (0.000-0.034) ng/mL Total Protein (6.3-8.2) g/dL Albumin (3.5-5.0) g/dL Urine Color Colorless Urine Appearance Clear (Clear) Urine pH 7.0 (5.0-8.0) Ur Specific [place] 1.030 (1.001-1.035) Urine Protein Negative (Negative) Urine Glucose (UA) Negative (Negative) Urine Ketones Negative (Negative) Urine Blood Negative (Negative) Urine Nitrite Negative (Negative) Urine Bilirubin Negative (Negative) Urine Urobilinogen <2.0 (<2.0) mg/dL Ur Leukocyte Esterase Negative (Negative) Influenza Type A (PCR) Not Detected (Not Detectd) Influenza Type B (PCR) Not Detected (Not Detectd) RSV (PCR) Not Detected (Not Detectd) SARS-CoV-2 (PCR) Not Detected (Not Detectd) 07/06/23 Range/Units 11:11 WBC (3.8-10.6) k/uL RBC (3.80-5.40) m/uL Hgb (11.4-16.0) gm/dL Hct (34.0-46.0) % MCV (80.0-100.0) fL MCH (25.0-35.0) pg MCHC (31.0-37.0) g/dL RDW (11.5-15.5) % Plt Count (150-450) k/uL MPV Neutrophils % % Lymphocytes % % Monocytes % % Eosinophils % % Basophils % % Neutrophils # (1.3-7.7) k/uL Lymphocytes # (1.0-4.8) k/uL Monocytes # (0-1.0) k/uL Eosinophils # (0-0.7) k/uL Basophils # (0-0.2) k/uL PT 10.2 (10.0-12.5) sec INR 0.9 (<1.2) APTT 18.2 L (22.0-30.0) sec Sodium (137-145) mmol/L Potassium (3.5-5.1) mmol/L Chloride (98-107) mmol/L Carbon Dioxide (22-30) mmol/L Anion Gap mmol/L BUN (7-17) mg/dL Creatinine (0.52-1.04) mg/dL Est GFR (CKD-EPI)AfAm (>60 ml/min/1.73 sqM) Est GFR (CKD-EPI)NonAf (>60 ml/min/1.73 sqM) Glucose (74-99) mg/dL POC Glucose (mg/dL) (70-110) mg/dL POC Glu Sed Special Education Teacher ID Calcium (8.4-10.2) mg/dL Total Bilirubin (0.2-1.3) mg/dL AST (14-36) U/L ALT (4-34) U/L Alkaline Phosphatase (38-126) U/L Creatine Kinase (30-135) U/L Troponin I (0.000-0.034) ng/mL Total Protein (6.3-8.2) g/dL Albumin (3.5-5.0) g/dL Urine Color Urine Appearance (Clear) Urine pH (5.0-8.0) Ur Specific [place] (1.001-1.035) Urine Protein (Negative) Urine Glucose (UA) (Negative) Urine Ketones (Negative) Urine Blood (Negative) Urine Nitrite (Negative) Urine Bilirubin (Negative) Urine Urobilinogen (<2.0) mg/dL Ur Leukocyte Esterase (Negative) Influenza Type A (PCR) (Not Detectd) Influenza Type B (PCR) (Not Detectd) RSV (PCR) (Not Detectd) SARS-CoV-2 (PCR) (Not Detectd) Critical Care Time Critical Care Time: Yes Total Critical Care Time: 35 Disposition Clinical Impression: Cerebrovascular accident (CVA) Disposition: ADMITTED IP TO THIS HOSP Condition: Stable Is patient prescribed a controlled substance at d/c from ED?: No Referrals: Boby Long DO [Primary Care Provider] - 1-2 days Time of Disposition: 13:52
[2023-07-06 10:46] LABS: Basophils # (A) 0.1 k/uL (0-0.2); Basophils % (A) 1 %; Eosinophils # (A) 0.2 k/uL (0-0.7); Eosinophils % (A) 2 %; HCT 41.6 % (34.0-46.0); HGB 13.9 gm/dL (11.4-16.0); Lymphocytes # (A) 1.4 k/uL (1.0-4.8); Lymphocytes % (A) 21 %; MCH 32.9 pg (25.0-35.0); MCHC 33.3 g/dL (31.0-37.0); MCV 98.8 fL (80.0-100.0); Mean Platelet Volume 7.8; Monocytes # (A) 0.3 k/uL (0-1.0); Monocytes % (A) 4 %; Neutrophils # (A) 4.5 k/uL (1.3-7.7); Neutrophils % (A) 70 %; Platelet Count 269 k/uL (150-450); RBC 4.21 m/uL (3.80-5.40); RDW 12.6 % (11.5-15.5); WBC 6.5 k/uL (3.8-10.6)
--- NOTE | 2023-07-06 10:56 | CT ---
EXAMINATION TYPE: CODE STROKE: CT brain wo contr CT DLP: 1095.1 mGycm, Automated exposure control for dose reduction was used. DATE OF EXAM: 07/06/2023 10:51 AM COMPARISON: 02/20/2019 CLINICAL INDICATION:Female, 77 years old with history of Neuro deficit, acute, stroke suspected, righ t sided weakness TECHNIQUE: Brain: Axial CT images of the brain were obtained with coronal and sagittal reformats created and rev iewed. Contrast used: None. Oral contrast used: None. FINDINGS: Brain: Extra-axial spaces: No abnormal extra-axial fluid collections. Ventricular system: Dilatation in proportion to cerebral atrophy. Cerebral parenchyma: Cerebral atrophy. No acute intraparenchymal hemorrhage or mass effect. The astudillo -white junction is well differentiated. Scattered hypoattenuating areas are seen within the white mat ter. Cerebellum: Unremarkable. Mass effect: No evidence of midline shift. Intracranial vasculature: Atherosclerotic calcifications of the intracranial vessels. Soft tissues: Normal. Calvarium/osseous structures: No depressed skull fracture. Paranasal sinuses and mastoid air cells: Mild scattered paranasal sinus disease. Visualized orbits: Bilateral aphakia IMPRESSION: 1. No acute intracranial process. 2. Nonspecific white matter changes, likely secondary to chronic small vessel ischemic disease.
[2023-07-06] MEDS: SODIUM CHLORIDE 0.9% 1,000 ML IV STA (10:58)
[2023-07-06 11:01] LABS: ALT 27 U/L (4-34); AST 34 U/L (14-36); African American GFR (CKD) 83 (>60 ml/min/1.73 sqM); Albumin 4.5 g/dL (3.5-5.0); Alkaline Phosphatase 99 U/L (38-126); Anion Gap 7 mmol/L; Blood Urea Nitrogen 17 mg/dL (7-17); Calcium 9.8 mg/dL (8.4-10.2); Carbon Dioxide 23 mmol/L (22-30); Chloride 113 mmol/L (98-107); Creatine Kinase 65 U/L (30-135); Glucose 130 mg/dL (74-99); Non-African American GFR(CKD) 72 (>60 ml/min/1.73 sqM); Potassium 3.7 mmol/L (3.5-5.1); Sodium 143 mmol/L (137-145); Total Bilirubin 0.6 mg/dL (0.2-1.3); Total Protein 7.3 g/dL (6.3-8.2)
--- NOTE | 2023-07-06 11:30 | XR ---
EXAMINATION TYPE: XR chest 2V DATE OF EXAM: 07/06/2023 COMPARISON: 04/24/2021 HISTORY: Shortness of breath TECHNIQUE: Frontal and lateral views of the chest are obtained. FINDINGS: Scattered senescent parenchymal changes noted. Hyperinflation compatible with COPD. No evidence for infiltrate. No evidence for atelectasis. Heart size is stable. Mediastinal structures are stable and grossly unremarkable. No evidence for hilar prominence. Degenerative changes dorsal spine. IMPRESSION: 1. No evidence for acute pulmonary disease.
[2023-07-06 11:42] LABS: INR 0.9 (<1.2); Prothrombin Time 10.2 sec (10.0-12.5)
[2023-07-06 11:47] LABS: Partial Thromboplastin Time 18.2 sec (22.0-30.0)
--- NOTE | 2023-07-06 12:01 | CT ---
EXAMINATION TYPE: CT angio head neck CT DLP: 378.3 mGycm, Automated exposure control for dose reduction was used. DATE OF EXAM: 07/06/2023 11:11 AM COMPARISON: 02/20/2019, 07/06/2023. CLINICAL INDICATION:Female, 77 years old with history of Neuro deficit, acute, stroke suspected; PHH, right sided weakness TECHNIQUE: Axially acquired helical CT angiogram of the head and neck was obtained with contrast. Axi al images are supplemented with 3D reconstructions and MIP images which were post-processed at an in dependent workstation. NASCET criteria used. Contrast used:65 mL of Isovue 370 with IV Contrast, Oral contrast used: None. FINDINGS: CTA HEAD: No evidence of acute intracranial hemorrhage, mass effect, or midline shift. The ventricles, sulci, a nd cisterns are unremarkable. Left frontal scalp soft tissue edema. No evidence of fracture. The visualized portions of the internal carotid arteries, middle cerebral arteries, anterior cerebral arteries, and posterior cerebral arteries are patent. The basilar and vertebral arteries are patent. CTA NECK: Right Carotid System: The common carotid and external carotid arteries are patent. There is less than 25% stenosis at the c arotid bifurcation secondary to calcified/noncalcified plaque. The rest of the internal carotid arter y is patent. Left Carotid System: The common carotid and external carotid arteries are patent. There is less than 25% stenosis at the c arotid bifurcation secondary to calcified/noncalcified plaque. The rest of the internal carotid arter y is patent. Vertebral arteries are patent without evidence hemodynamically significant stenosis. There is a three-vessel aortic arch. The origins of the great vessels are patent. No evidence of hemo dynamically significant stenosis. Upper thorax: IMPRESSION: 1. No evidence of dissection of the cervical internal carotid arteries or vertebral arteries or any e vidence of significant stenosis at the carotid bifurcations. 2. No evidence of intracranial high-grade stenosis or intracranial aneurysm. 3. Left frontal scalp soft tissue edema without evidence of fracture.
[2023-07-06 13:31] LABS: Appearance,Urine Clear (Clear); Bilirubin,Urine Negative (Negative); Blood,Urine Negative (Negative); Color,Urine Colorless; Glucose,Urine (UA) Negative (Negative); Ketones,Urine Negative (Negative); Leukocyte Esterase,Urine Negative (Negative); Nitrite,Urine Negative (Negative); Protein,Urine Negative (Negative); Urobilinogen,Urine <2.0 mg/dL (<2.0)
[2023-07-06] MEDS: SODIUM CHLORIDE 0.9% 1,000 ML IV SCH (13:48)
[2023-07-06] MEDS: ASPIRIN 325 MG TAB PO STA (13:49)
[2023-07-06] MEDS ORDERED: BACLOFEN 10 MG TAB PO PRN (18:17)
[2023-07-06] MEDS: ACETAMINOPHEN TAB 325 MG TAB PO STA (18:54)
[2023-07-06] MEDS: ENOXAPARIN 40 MG/0.4 ML SYRINGE SQ SCH (18:57)
[2023-07-06] MEDS: METOPROLOL TARTRATE 12.5 MG TAB PO SCH (20:20)
[2023-07-06] MEDS ORDERED: LACTULOSE 20 GM/30 ML CUP PO PRN (20:58)
[2023-07-06] MEDS ORDERED: ONDANSETRON 4 MG/2 ML VIAL IVP PRN (20:58)
[2023-07-06] MEDS ORDERED: NALOXONE 0.4 MG/ML 1 ML VIAL IV PRN (20:58)
[2023-07-06] MEDS ORDERED: ATORVASTATIN 80 MG TAB PO SCH (21:00)
[2023-07-07] MEDS: ALPRAZolam 0.25 MG TAB PO PRN (00:50)
[2023-07-07] MEDS ORDERED: CALCIUM CARBONATE 500 MG CHEWABLE PO SCH (09:00)
[2023-07-07] MEDS ORDERED: ATORVASTATIN 20 MG TAB PO SCH (09:00)
--- NOTE | 2023-07-07 09:10 | CA ---
Transthoracic Echo Report Name: Abbie Yu Age: 77 Gender: F : 1945 Exam Date: 07/06/2023 15:50 Exam Location: [facility] Ht (in): 67 Wt (lb): 150 Ordering Physician: Lucio Steven MD Attending/Referring Phys: [id number], Tenisha Rate Marker Augusto Colon RD Procedure CPT: Indications: Thrombus Cardiac Hx: Technical Quality: Fair Contrast 1: Total Dose (mL): Contrast 2: Total Dose (mL): MEASUREMENTS (Male / Female) Normal Values 2D ECHO LV Diastolic Diameter PLAX 4.3 cm 4.2 - 5.9 / 3.9 - 5.3 cm LV Systolic Diameter PLAX 2.4 cm IVS Diastolic Thickness 0.9 cm 0.6 - 1.0 / 0.6 - 0.9 cm LVPW Diastolic Thickness 1.1 cm 0.6 - 1.0 / 0.6 - 0.9 cm LV Relative Wall Thickness 0.5 RV Internal Dim ED PLAX 2.4 cm LVOT Diameter 1.8 cm Aortic Root Diameter 2.2 cm LA Systolic Diameter LX 3.3 cm 3.0 - 4.0 / 2.7 - 3.8 cm LV Diastolic Volume MOD BP 39.0 cm??? 67 - 155 / 56 - 104 cm??? LV Systolic Volume MOD BP 12.3 cm??? 22 - 58 / 19 - 49 cm??? LV Ejection Fraction MOD BP 68.6 % >= 55 % LV Cardiac Index MOD BP 833.9 cm???/min???m??? LV Diastolic Volume MOD 4C 41.4 cm??? LV Systolic Volume MOD 4C 14.5 cm??? LV Ejection Fraction MOD 4C 65.0 % LV Cardiac Index MOD 4C 837.4 cm???/min???m??? LV Diastolic Length 4C 7.5 cm LV Systolic Length 4C 5.8 cm LV Diastolic Volume MOD 2C 32.1 cm??? LV Systolic Volume MOD 2C 10.1 cm??? LV Ejection Fraction MOD 2C 68.5 % LV Cardiac Index MOD 2C 685.8 cm???/min???m??? LV Diastolic Length 2C 6.5 cm LV Systolic Length 2C 6.0 cm LA Volume 36.5 cm??? 18 - 58 / 22 - 52 cm??? LA Volume Index 20.3 cm???/m??? 16 - 28 cm???/m??? DOPPLER AV Peak Velocity 156.0 cm/s AV Peak Gradient 9.7 mmHg AV Mean Velocity 104.6 cm/s AV Mean Gradient 4.8 mmHg AV Velocity Time Integral 37.6 cm LVOT Peak Velocity 94.3 cm/s LVOT Peak Gradient 3.6 mmHg LVOT Velocity Time Integral 26.7 cm LVOT Stroke Volume 65.5 cm??? LVOT Stroke Volume Index 36.6 ml/m??? LVOT Cardiac Index 2039.7 cm???/min???m??? AV Area Cont Eq vti 1.7 cm??? AV Area Cont Eq pk 1.5 cm??? MV Peak Velocity 131.3 cm/s MV Peak Gradient 6.9 mmHg MV Mean Velocity 61.6 cm/s MV Mean Gradient 1.8 mmHg MV Velocity Time Integral 42.3 cm Mitral E Point Velocity 68.0 cm/s Mitral A Point Velocity 120.4 cm/s Mitral E to A Ratio 0.6 MV Deceleration Time 451.2 ms MV E' Velocity 4.3 cm/s Mitral E to MV E' Ratio 15.9 TR Peak Velocity 182.1 cm/s TR Peak Gradient 13.3 mmHg Right Ventricular Systolic Press 18.3 mmHg PV Peak Velocity 109.4 cm/s PV Peak Gradient 4.8 mmHg FINDINGS Left Ventricle Normal LV size and wall thickness. Left ventricular ejection fraction is estimated at 55-60 %. No obvious regional wall motion abnormality. Grade 1 diastolic dysfunction Right Ventricle Normal right ventricular size. Right Atrium Normal right atrial size. Left Atrium Normal left atrial size. Mitral Valve Structurally normal mitral valve. No mitral stenosis. Aortic Valve HX TAVR. No aortic regurgitation. No aortic stenosis. Mean gradient 5 mmHg Tricuspid Valve Structurally normal tricuspid valve. Trace TR. Pulmonic Valve Pulmonic valve not well visualized. No pulmonic regurgitation. Pericardium Normal pericardium. No pericardial effusion Aorta Normal size aortic root. CONCLUSIONS Left ventricular ejection fraction is estimated at 55-60 %. No obvious regional wall motion abnormality. Grade 1 diastolic dysfunction Edward sapiens S3 bioprosthetic aortic valve in place with no significant stenosis or regurgitation. No PVL Previewed by: Dr Sidney Emerson (Electronically Signed) Final Date: 07 July 2023 09:09
[2023-07-07] MEDS: ASPIRIN 325 MG TAB PO SCH (09:49)
[2023-07-07] MEDS: ATORVASTATIN 20 MG TAB PO SCH (09:49)
[2023-07-07] MEDS: MULTIVITAMINS, THERA 1 EACH TAB PO SCH (09:50)
[2023-07-07] MEDS: CHOLECALCIFEROL 25 MCG (1000 IU) TABLET PO SCH (09:50)
[2023-07-07] MEDS: CALCIUM CARBONATE 500 MG CHEWABLE PO SCH (09:51)
--- NOTE | 2023-07-07 14:43 | P.CNNES ---
History of Present Illness Consult date: 07/07/23 Requesting physician: Lucio Steven Reason for Consult: cva History of Present Illness: This is a 77-year-old woman who presented emergency department because of confusion. Patient is accompanied with her daughter (Lisa) was at bedside. Seems to the daughter that the patient has been confused for the last couple days and yesterday at 9 this in the morning she noticed that she had urinary incontinence and did not know what transpired. Later she felt like she could not stand up and walk. Again per the daughter's she's been confused the past couple days and the was complaining of dizziness. No history of seizures or stroke in the past. She denies of any bowel incontinence, tongue bite. She feels she is doing better. Denies of any headache. Denies any history of the leg cancer in the past. She has history of hypertension, hypercholesteremia, arthritis, she was told that she has factor V Leiden deficiency and that she the the is on aspirin 81 mg daily. He had history of blood clots due to the factor V Leiden deficiency. She follows up with a vp product Dr. Su as an outpatient. Some of the workup during his hospital visit consisted of: Patient is afebrile. Heart rate as well as a in the low 50s. CBC with differential is unremarkable Serum glucose is 1:30, sodium was 143, calcium 9.8, AST ALT and the BUN/creatinine are within normal limits Urinalysis is negative for any underlying urinary tract infection CT of the head is reported as no acute intracranial process. Nonspecific white matter changes, likely secondary due to chronic small vessel ischemic disease. I personally reviewed the CT head and I agree there is no acute or subacute ischemia. There is no bleed CT angiography of the head and neck is reported as no evidence of dissection of cervical internal carotid artery or vertebral artery or any evidence of significant stenosis at the carotid bifurcation. No evidence of intracranial high-grade stenosis or intracranial aneurysm. Left frontal scalp soft tissue ed jasmyne without evidence of fracture. 2D echo is reported as left ventricle ejection fraction of 55-60%. No obvious regional wall motion abnormality. Grade 1 diastolic dysfunction. Edward sapiens S3 bioprosthetic aortic valve in place with no significant stenosis or regurgitation. Review of Systems The positive and negative as per HPI. Past Medical History Past Medical History: Blood Disorder, Deep Vein Thrombosis (DVT), Hyperli pidemia, Hypertension, Osteoarthritis (OA) Additional Past Medical History / Comment(s): heart murmur, Factor V Leiden, HX DVT years ago from taking control History of Any Multi-Drug Resistant Organisms: ESBL Date of last positivie culture/infection: 04/10/21 MDRO Source:: ESBL URINE Past Surgical History: Appendectomy, Cholecystectomy, Hysterectomy, Joint Replacement, Orthopedic Surgery Additional Past Surgical History / Comment(s): total rt knee replacement,left shoulder arthroscopy, rt shoulder surgery, rt eye surgery for torn retina. [employer] Implant Date 04/2021. Serial Number [id number]. Model Number EVPROPLUS- [id number]. Aortic valve Past Anesthesia/Blood Transfusion Reactions: No Reported Reaction Past Psychological History: No Psychological Hx Reported Smoking Status: Former smoker - Past Family History Mother Family Medical History: Cancer Sister(s) Family Medical History: Deep Vein Thrombosis (DVT), Pulmonary Embolus Daughter(s) Family Medical History: Deep Vein Thrombosis (DVT) Medications and Allergies Home Medications Medication Instructions Recorded Confirmed Type Cholecalciferol [Vitamin D3 (25 25 mcg PO DAILY 12/31/15 07/06/23 History Mcg = 1000 Iu)] Multivitamins, Thera [Multivitamin 1 tab PO DAILY 12/31/15 07/06/23 History (formulary)] NIFEdipine [Procardia XL] 60 mg PO DAILY 12/31/15 07/06/23 History [place]-3 Fatty Acids/Fish Oil [Fish 1 cap PO HS 02/20/19 07/06/23 History Oil 1,000 mg Softgel] Rosuvastatin [Crestor] 10 mg PO DAILY 02/20/19 07/06/23 History Baclofen 10 mg PO TID PRN 03/24/21 07/06/23 History Magnesium 250 mg PO DAILY 03/24/21 07/06/23 History Calcium Carbonate [Calcium] 600 mg PO DAILY 07/06/23 07/06/23 History Metoprolol Tartrate [Lopressor] 12.5 mg PO BID 07/06/23 07/06/23 History diphenhydrAMINE HCL [Benadryl] 25 mg PO HS PRN 07/06/23 07/06/23 History Allergies Allergy/AdvReac Type Severity Reaction Status Date / Time Tetanus Vaccines and Toxoid Allergy Swelling Verified 07/06/23 13:48 Androgenic Anabolic Steroid AdvReac Nausea & Verified 07/06/23 13:48 Vomiting codeine AdvReac Chest Pain Verified 07/06/23 13:48 Physical Examination - Vital Signs Vital Signs: Vital Signs Temp Pulse Resp BP Pulse Ox 07/07/23 09:00 61 18 139/79 95 07/07/23 07:22 53 L 18 132/67 94 L 07/07/23 06:08 55 L 15 142/69 94 L 07/07/23 03:00 52 L 18 137/68 94 L 07/06/23 22:00 53 L 18 121/61 93 L 07/06/23 20:22 85 18 190/78 95 07/06/23 18:50 98.5 F 61 18 194/62 96 07/06/23 18:22 56 L 18 185/97 95 07/06/23 15:00 57 L 18 185/93 95 GENERAL: The patient is lying in bed and is not in acute distress. NEUROLOGICAL: Higher mental function: The patient is awake, alert, oriented to self, place and time. Patient is following commands. No aphasia and no neglect. Cranial nerves: The pupils are round, equal and reactive to light and accommodation. Visual power are full to confrontation throughout. Extraocular movement is intact no nystagmus is noted. Facial sensation is normal to touch throughout. The facial strength is normal throughout. Hearing is normal bilaterally to hand rub. Tongue is midline and moved [id number] without any difficulty. No dysarthria is noted. Shoulder shrug is normal bilaterally. Motor: The strength is 5 over 5 throughout. Normal tone and bulk. Cerebellum: Normal finger to nose bilaterally. Sensation: Sensation is normal to touch throughout. Reflexes (right/left): 2+ throughout. Plantars are downgoing bilaterally. Results - Laboratory Findings CBC and BMP: 07/06/23 10:30 07/06/23 10:30 Abnormal Lab Findings: Abnormal Labs 07/06/23 07/06/23 07/06/23 10:30 10:37 11:11 APTT 18.2 L Chloride 113 H Glucose 130 H POC Glucose (mg/dL) 120 H Assessment and Plan Assessment: This is a 77-year-old woman with has been having confusion for the last couple days and then yesterday at the morning she had urinary incontinence and was unaware of what transpired then the felt she was unable to stand and that felt her gait was unsteady. Her symptoms has resolved. Recently she is also felt she is dizzy. She she's feeling much better. Patient does have history of factor V Leiden deficiency with history of blood clot and she is on aspirin. Episode of confusion (encephalopathy) with leg weakness and steadiness and urinary incontinence: Unsure exactly etiology one of the possibility is rule out seizure versus stroke. Bradycardia as low as 50s History of factor V Leiden deficiency with history of blood clot and is on aspirin Hypertension Arthritis Hypercholesterolemia Plan: I ordered a routine EEG. I ordered MRI of the brain with and without seizure protocol Patient is on aspirin 325mg daily seems at home she was on 81mg. She is on Lipitor 20 mg daily. If the patient does have a stroke will consider modifying her medication Lipid panels ordered and is pending I ordered TSH, ammonia level, vitamin B12 and folate Continue checks Cardiac monitoring PT, OT and FITTINGS TIGHTENER are consulted Patient was notified if she truly has a seizure then to the [place] DMV, to avoid driving for 6 month until seizure-free, avoid heights, avoids swimming unassisted that. I recommend the patient to follow-up with a neurologist as an outpatient within 1-2 weeks at. We'll defer the rest of medical management to primary team. For DVT prophylaxis the patient is on Lovenox The plan was discussed with the patient and her daughter was at bedside Thank you for the consultation. Time with Patient: Greater than 30
[2023-07-07 16:25] LABS: Chol/HDL Ratio 1.91 Ratio; LDL Cholesterol,Calculated 56.6 mg/dL (0.0-131.0)
--- NOTE | 2023-07-07 17:47 | MR ---
EXAMINATION TYPE: MR brain wo/w con DATE OF EXAM: 07/07/2023 5:17 PM CLINICAL INDICATION:Female, 77 years old with history of confusion. Seizure protocol, Confusion, Sei zure protocol COMPARISON: 06/26/2023 TECHNIQUE: Multi planar, multi sequence imaging was performed through the brain including: T1, T2, In version recovery, susceptibility weighted imaging and gradient echo imaging and Diffusion weighted im aging. The patient was then given intravenous contrast and multi planar, T1 fat-saturation images wer e obtained. IV Contrast: 7 cc Gadavist FINDINGS: Mild cerebral atrophy with proportional dilation of ventricular system. Diffusion-weighted imaging s hows no evidence of restricted diffusion to suggest acute/subacute infarct. Intracranial arterial emery w voids are maintained. Midline structures show no abnormality. Scattered foci of high T2 signal inte nsity are seen within the periventricular white matter. The susceptibility weighted images do not rev eal any evidence for micro-hemorrhage. After administration of gadolinium, no abnormal enhancement is seen. The bone marrow signal is within normal limits. Paranasal sinuses and mastoid air cells: No significant paranasal sinus disease. Visualized orbits: Bilaterally aphakia. IMPRESSION: 1. No evidence of intracranial mass, acute/subacute infarct, or abnormal enhancement. 2. Nonspecific white matter changes, likely related to small vessel ischemic disease.
--- NOTE | 2023-07-07 17:52 | P.HPIM ---
History of Present Illness H&P Date: 07/07/23 Chief Complaint: Increasing confusion This is a pleasant 77-year-old patient follows Dr. Long. Chronic stable medical conditions include prior history of DVT with factor V [place], currently on aspirin hypertension, hyperlipidemia, osteoarthritis. Patient's daughter sushma es with her. Over the weekend patient felt a bit tired. Slightly confused. Noticed by the family. On Wednesday evening went out to sleep. When she got up yesterday morning she was rather sleepy a bit confused. Weak in her legs. Over the weekend she had also had double vision. Was also having trouble finding words. And she was brought into the hospital. This morning patient's other daughter is at the bedside. She been up to the bathroom. Feels much better. Able to communicate. No focal weakness. No double vision. Review of systems: GEN.: Tired EYES: None HEENT: None NECK: None RESPIRATORY: None CARDIOVASCULAR: None GASTROINTESTINAL: None GENITOURINARY: None MUSCULOSKELETAL: Some joint pains LYMPHATICS: None HEMATOLOGICAL: None PSYCHIATRY: None NEUROLOGICAL: As above Social history: Patient smokes since teenager less than a pack a day stopped in 2009. Alcohol occasionally. Daughter lives with her. Physical examination: VITAL SIGNS: Afebrile, 53, 18, 132/67, 94% room air GENERAL: BMI 23.6, reclining bed awake comfortable. EYES: Pupils equal. Conjunctiva mer l. HEENT: External appearance of nose and ears normal, oral cavity grossly normal. NECK: JVD not raised; masses not palpable. HEART: First and second heart sounds are normal; no edema. LUNGS: Respiratory rate normal; clear to auscultation. ABDOMEN: Soft, nontender, liver spleen not palpable, no masses palpable. PSYCH: Alert and oriented x3; mood and affect mer l. MUSCULOSKELETAL:No Clubbing/cyanosis;muscles-grossly intact. OA NEUROLOGICAL: Cranial nerves grossly intact; no facial asymmetry, power and sensation grossly intact. LYMPHATICS: No lymph nodes palpable in the axilla and neck INVESTIGATIONS, reviewed in the clinical context: July 06: White count 6.5 globin 13.9 platelets 269 potassium 3.7 creatinine 0.79 Troponin I less than 0.012 LDL 56.6 TSH 1.2 EKG tracing personally reviewed by me-normal sinus rhythm. Chest x-ray film personally reviewed by me-normal sinus rhythm CT angiography brain: Unremarkable Influenza type A, type B, RSV, COVID-19: Not detected 2D echocardiogram EF 55 to 60% Assessment and plan: -Patient presents with over 2 days of confusion. Weakness in the legs. Unable to find words. This morning symptoms are greatly improved. TIA/TGA. Neurology consulted. Aspirin. Lipitor. MRI. EEG. -Hyperlipidemia Crestor 10 mg a day -Essential hypertension Lopressor, Procardia XL -Chronic muscle spasm Baclofen as needed Care was discussed with the patient and daughter at the bedside. Questions answered. Past Medical History Past Medical History: Blood Disorder, Deep Vein Thrombosis (DVT), Hyperlipidemia , Hypertension, Osteoarthritis (OA) Additional Past Medical History / Comment(s): heart murmur, Factor V Leiden, HX DVT years ago from taking control History of Any Multi-Drug Resistant Organisms: ESBL Date of last positivie culture/infection: 04/10/21 MDRO Source:: ESBL URINE Past Surgical History: Appendectomy, Cholecystectomy, Hysterectomy, Joint Replacement, Orthopedic Surgery Additional Past Surgical History / Comment(s): total rt knee replacement,left shoulder arthroscopy, rt shoulder surgery, rt eye surgery for torn retina Past Anesthesia/Blood Transfusion Reactions: No Reported Reaction Past Psychological History: No Psychological Hx Reported Smoking Status: Former smoker - Past Family History Mother Family Medical History: Cancer Sister(s) Family Medical History: Deep Vein Thrombosis (DVT), Pulmonary Embolus Daughter(s) Family Medical History: Deep Vein Thrombosis (DVT) Medications and Allergies Home Medications Medication Instructions Recorded Confirmed Type Cholecalciferol [Vitamin D3 (25 25 mcg PO DAILY 12/31/15 07/06/23 History Mcg = 1000 Iu)] Multivitamins, Thera [Multivitamin 1 tab PO DAILY 12/31/15 07/06/23 History (formulary)] NIFEdipine [Procardia XL] 60 mg PO DAILY 12/31/15 07/06/23 History [place]-3 Fatty Acids/Fish Oil [Fish 1 cap PO HS 02/20/19 07/06/23 History Oil 1,000 mg Softgel] Rosuvastatin [Crestor] 10 mg PO DAILY 02/20/19 07/06/23 History Baclofen 10 mg PO TID PRN 03/24/21 07/06/23 History Magnesium 250 mg PO DAILY 03/24/21 07/06/23 History Calcium Carbonate [Calcium] 600 mg PO DAILY 07/06/23 07/06/23 History Metoprolol Tartrate [Lopressor] 12.5 mg PO BID 07/06/23 07/06/23 History diphenhydrAMINE HCL [Benadryl] 25 mg PO HS PRN 07/06/23 07/06/23 History Allergies Allergy/AdvReac Type Severity Reaction Status Date / Time Tetanus Vaccines and Toxoid Allergy Swelling Verified 07/06/23 13:48 Androgenic Anabolic Steroid AdvReac Nausea & Verified 07/06/23 13:48 Vomiting codeine AdvReac Chest Pain Verified 07/06/23 13:48 Physical Exam Vitals: Vital Signs Temp Pulse Resp BP Pulse Ox 07/07/23 09:00 61 18 139/79 95 07/07/23 07:22 53 L 18 132/67 94 L 07/07/23 06:08 55 L 15 142/69 94 L 07/07/23 03:00 52 L 18 137/68 94 L 07/06/23 22:00 53 L 18 121/61 93 L 07/06/23 20:22 85 18 190/78 95 07/06/23 18:50 98.5 F 61 18 194/62 96 07/06/23 18:22 56 L 18 185/97 95 07/06/23 15:00 57 L 18 185/93 95 07/06/23 13:00 53 L 16 184/81 95 Results CBC & Chem 7: 07/06/23 10:30 07/06/23 10:30 Labs: Abnormal Lab Results - Last 24 Hours (Table) 07/06/23 07/06/23 Range/Units 10:30 11:11 APTT 18.2 L (22.0-30.0) sec Chloride 113 H (98-107) mmol/L Glucose 130 H (74-99) mg/dL
[2023-07-07] MEDS: TEMAZEPAM 15 MG CAP PO PRN (21:37)
[2023-07-07] MEDS: BACLOFEN 10 MG TAB PO PRN (21:37)
--- NOTE | 2023-07-07 22:40 | EEG ---
ELECTROENCEPHALOGRAM REPORT CLINICAL HISTORY: This is a 77-year-old woman with confusion and episode of urinary incontinence. The video EEG is obtained to evaluate for seizure epileptiform activity. RELEVANT MEDICATIONS: Baclofen and Xanax. EEG TYPE: Routine 21-channel EEG with video using the 10/20 electrode placement system. DESCRIPTION: Wakefulness is only obtained. During awake state, the posterior-dominant rhythm consists of low to mild voltage of 8 to 8.5 hertz activity that is well modulated and sustained. There is no physiological stage 2 sleep architecture. There is no focal slowing. Interictal and ictal is none. ACTIVATION PROCEDURE: Photic stimulation did not evoke a posterior driving response. There is no abnormality during the photic stimulation. Hyperventilation is not performed. CLINICAL INTERPRETATION: This is a normal routine EEG. There is no focal slowing, epileptiform discharge, or seizure on the EEG. A normal routine EEG does not rule out underlying epilepsy. Clinical correlation is recommended. MMABRAN / DOMITILAN: [id number] /
[2023-07-08 08:56] VITALS: BP 137/82; PULSE 61; RESP 18; TEMP 97.8
--- NOTE | 2023-07-08 17:12 | P.PN ---
Subjective Progress Note Date: 07/08/23 I am following up with the patient and she states that she's doing well. No further episodes of passing, any urinary incontinence. She feels back to baseline. Objective - Vital Signs Vital signs: Vital Signs Temp 97.8 F 07/08/23 08:00 Pulse 61 07/08/23 08:00 Resp 18 07/08/23 08:00 BP 137/82 07/08/23 08:00 Pulse Ox 96 07/08/23 08:00 FiO2 Intake & Output 07/07/23 07/08/23 07/08/23 18:59 06:59 18:59 Other: Voiding Method Toilet Toilet # Voids 1 - Exam GENERAL: The patient is sitting in a recliner chair and is not in acute distress. NEUROLOGICAL: Higher mental function: The patient is awake, alert, oriented to self, place and time. Patient is following commands. No aphasia and no neglect. Cranial nerves: The pupils are round, equal and reactive to light and accommodation. Visual power are full to confrontation throughout. Extraocular movement is intact no nystagmus is noted. Facial sensation is normal to touch throughout. The facial strength is normal throughout. Hearing is normal bilaterally to hand rub. Tongue is midline and moved [id number] without any difficulty. No dysarthria is noted. Shoulder shrug is normal bilaterally. Motor: The strength is 5 over 5 throughout. Normal tone and bulk. Cerebellum: Normal finger to nose bilaterally. Sensation: Sensation is normal to touch throughout. Reflexes (right/left): 2+ throughout. Plantars are downgoing bilaterally. Some of the workup during his hospital visit consisted of: Patient is afebrile. CBC with differential is unremarkable Serum glucose is 1:30, sodium was 143, calcium 9.8, AST ALT and the BUN/creatinine are within normal limits B12 is 499 Folate is 33.60 TSH is 1.240 Ammonia is less than 9 Urinalysis is negative for any underlying urinary tract infection CT of the head is reported as no acute intracranial process. Nonspecific white matter changes, likely secondary due to chronic small vessel ischemic disease. I personally reviewed the CT head and I agree there is no acute or subacute ischemia. There is no bleed CT angiography of the head and neck is reported as no evidence of dissection of cervical internal carotid artery or vertebral artery or any evidence of significant stenosis at the carotid bifurcation. No evidence of intracranial high-grade stenosis or intracranial aneurysm. Left frontal scalp soft tissue edema without evidence of fracture. 2D echo is reported as left ventricle ejection fraction of 55-60%. No obvious regional wall motion abnormality. Grade 1 diastolic dysfunction. Stefan sapiens S3 bioprosthetic aortic valve in place with no significant stenosis or regurgitation. MR the brain is reported as no evidence of intracranial mass, acute/subacute infarct or abnormal enhancement. Nonspecific white matter changes, likely related to small vessel ischemic disease. I reviewed MRI and agree with report. Routine EEG is normal. - Labs CBC & Chem 7: 07/06/23 10:30 07/06/23 10:30 Labs: Abnormal Lab Results - Last 24 Hours (Table) 07/07/23 Range/Units 15:04 Folate 33.60 H (4.40-31.00) ng/mL Assessment and Plan Assessment: This is a 77-year-old woman with has been having confusion for the last couple days and then yesterday at the morning she had urinary incontinence and was unaware of what transpired then the felt she was unable to stand and that felt her gait was unsteady. Her symptoms has resolved. Recently she is also felt she is dizzy. She she's feeling much better. Patient does have history of factor V Leiden deficiency with history of blood clot and she is on aspirin. Episode of confusion (encephalopathy) with leg weakness and steadiness and urinary incontinence: Unsure exactly etiology one of the possibility is rule out seizure. Routine EEG is normal and MRI Brain is negative. Bradycardia as low as 50s History of factor V Leiden deficiency with history of blood clot and is on aspirin Hypertension Arthritis Hypercholesterolemia Plan: I'm concerned about questionable seizures that the is not seen on a routine EEG. A routine EEG cannot rule out seizure. I recommend a prolonged EEG as an outpatient or sleep deprived EEG and follow up with a neurologist as an outpatient for further evaluation. If the patient continues to have further episodes of confusion with incontinence then recommend the patient to be started on the antiepileptic medication. Patient is on aspirin 325mg daily seems at home she was on 81mg. She is on Lipitor 20 mg daily. patient does not have a stroke and this is not TIA and we'll defer the modification of this medication to the primary team. Continue checks Cardiac monitoring PT, OT and LANDSCAPE [employer]ARDWORK LABORER are consulted Patient was notified because of concern for seizure per [place] DMV, to avoid driving for 6 month until seizure-free, avoid heights, avoids swimming unassisted that. I recommend the patient to follow-up with a neurologist as an outpatient within 1-2 weeks. We'll defer the rest of medical management to primary team. The plan is discussed with patient. Time with Patient: Less than 30
--- NOTE | 2023-07-09 13:45 | P.DS ---
Providers Date of admission: 07/06/23 13:52 Expected date of discharge: 07/08/23 Attending physician: Farrukh Escobar Consults: 07/06/23 13:53 Consult Physician Routine Consulting Provider: Fidencio George Consult Reason/Comments: CVA Do you want consulting provider notified?: Yes Primary care physician: Boby Duane L. Waters Hospital Course: Chief Complaint: Increasing confusion This is a pleasant 77-year-old patient follows Dr. Long. Chronic stable medical conditions include prior history of DVT with factor V [place], currently on aspirin hypertension, hyperlipidemia, osteoarthritis. Patient's daughter lives with her. Over the weekend patient felt a bit tired. Slightly confused. Noticed by the family. On Wednesday evening went out to sleep. When she got up yesterday morning she was rather sleepy a bit confused. Weak in her legs. Over the weekend she had also had double vision. Was also having trouble finding words. And she was brought into the hospital. This morning patient's other daughter is at the bedside. She been up to the bathroom. Feels much better. Able to communicate. No focal weakness. No double vision. July 08: Patient feeling well. EEG negative for seizure. Patient's daughter at the bedside. Explained to them this could have been a seizure though the EEG was negative. Outpatient prolonged EEG will be done. Patient to follow-up with neurology. Seizure precautions including no driving informed. No antiepileptics at this point. Cleared by neurology. Discussion and discharge planning more than 35 minutes Social history: Patient smokes since teenager less than a pack a day stopped in 2009. Alcohol occasionally. Daughter lives with her. Physical examination: VITAL SIGNS: 97.8, 61, 18, 137/82, 96% room air GENERAL: Sitting up, comfortable. EYES: Pupils equal. Conjunctiva mer l. HEENT: External appearance of nose and ears normal, oral cavity grossly normal. NECK: JVD not raised; masses not palpable. HEART: First and second heart sounds are normal; no edema. LUNGS: Respiratory rate normal; clear to auscultation. ABDOMEN: Soft, nontender, liver spleen not palpable, no masses palpable. PSYCH: Alert and oriented x3; mood and affect mer l. MUSCULOSKELETAL:No Clubbing/cyanosis;muscles-grossly intact. OA INVESTIGATIONS, reviewed in the clinical context: Brain MRI: Nonspecific white matter changes EEG: Negative for epilepsy activity. LDL 56.6 B12 499 folate 33.6 TSH 1.2 July 06: White count 6.5 globin 13.9 platelets 269 potassium 3.7 creatinine 0.79 Troponin I less than 0.012 LDL 56.6 TSH 1.2 EKG tracing personally reviewed by me-normal sinus rhythm. Chest x-ray film personally reviewed by me-normal sinus rhythm CT angiography brain: Unremarkable Influenza type A, type B, RSV, COVID-19: Not detected 2D echocardiogram EF 55 to 60% Assessment and plan: -Possible episode of seizure. EEG was negative. Further workup including prolonged EEG as outpatient. Follo w-up with neuro. Seizure precautions. Including no driving till further notice Seen by Dr. GEORGE from neurology Follow-up with neurology outpatient. -Hyperlipidemia Crestor 10 mg a day -Essential hypertension Lopressor, Procardia XL -Chronic muscle spasm Baclofen as needed Disposition: Home Past Medical History Past Medical History: Blood Disorder, Deep Vein Thrombosis (DVT), Hyperlipidemia, Hypertension, Osteoarthritis (OA) Additional Past Medical History / Comment(s): heart murmur, Factor V Leiden, HX DVT years ago from taking control History of Any Multi-Drug Resistant Organisms: ESBL Date of last positivie culture/infection: 04/10/21 MDRO Source:: ESBL URINE Past Surgical History: Appendectomy, Cholecystectomy, Hysterectomy, Joint Replacement, Orthopedic Surgery Additional Past Surgical History / Comment(s): total rt knee replacement,left shoulder arthroscopy, rt shoulder surgery, rt eye surgery for torn retina Past Anesthesia/Blood Transfusion Reactions: No Reported Reaction Past Psychological History: No Psychological Hx Reported Smoking Status: Former smoker Plan - Discharge Summary New Discharge Prescriptions: New Zolpidem Tartrate [Ambien] 2.5 mg PO HS PRN #3 tab PRN Reason: Insomnia Aspirin 81 mg PO DAILY #30 tab Continue Multivitamins, Thera [Multivitamin (formulary)] 1 tab PO DAILY Cholecalciferol [Vitamin D3 (25 Mcg = 1000 Iu)] 25 mcg PO DAILY NIFEdipine [Procardia XL] 60 mg PO DAILY [place]-3 Fatty Acids/Fish Oil [Fish Oil 1,000 mg Softgel] 1 cap PO HS Rosuvastatin [Crestor] 10 mg PO DAILY Magnesium 250 mg PO DAILY Metoprolol Tartrate [Lopressor] 12.5 mg PO BID Calcium Carbonate [Calcium] 600 mg PO DAILY Changed Baclofen 5 mg PO TID PRN #0 PRN Reason: Pain Discontinued diphenhydrAMINE HCL [Benadryl] 25 mg PO HS PRN PRN Reason: Insomnia Discharge Medication List Cholecalciferol [Vitamin D3 (25 Mcg = 1000 Iu)] 25 mcg PO DAILY 12/31/15 [History] Multivitamins, Thera [Multivitamin (formulary)] 1 tab PO DAILY 12/31/15 [History] NIFEdipine [Procardia XL] 60 mg PO DAILY 12/31/15 [History] Ira-3 Fatty Acids/Fish Oil [Fish Oil 1,000 mg Softgel] 1 cap PO HS 02/20/19 [History] Rosuvastatin [Crestor] 10 mg PO DAILY 02/20/19 [History] Magnesium 250 mg PO DAILY 03/24/21 [History] Calcium Carbonate [Calcium] 600 mg PO DAILY 07/06/23 [History] Metoprolol Tartrate [Lopressor] 12.5 mg PO BID 07/06/23 [History] Aspirin 81 mg PO DAILY #30 tab 07/08/23 [Rx] Baclofen 5 mg PO TID PRN #0 07/08/23 [Rx] Zolpidem Tartrate [Ambien] 2.5 mg PO HS PRN #3 tab 07/08/23 [Rx] Follow up Appointment(s)/Referral(s): Boby Long DO [Primary Care Provider] - 1-2 days (office closed for lunch, patient to call and make appointment) Fidencio Pappas MD [STAFF PHYSICIAN] - 1 Week Activity/Diet/Wound Care/Special Instructions: no auto driving till further notice Discharge Disposition: HOME SELF-CARE
== END 2023-07-08 13:08 | disposition home or self-care (01) | DRG 69 ==
LOC: EC 10:32 → 3SCARD 13:52
PROVIDERS: ADMIT Hospitalist; ATTEND Hospitalist
PROC: 4A10X4Z Monitoring of Central Nervous Electrical Activity, External Approach (ICD-10-PCS; principal; 2023-07-07)
DX: G45.9 Transient cerebral ischemic attack, unspecified (principal); D68.51 Activated protein C resistance; E51.2 Wernicke's encephalopathy; R47.01 Aphasia; I10 Essential (primary) hypertension; M62.838 Other muscle spasm; Z79.82 Long term (current) use of aspirin; R32 Unspecified urinary incontinence; G35 Multiple sclerosis; R00.1 Bradycardia, unspecified; E78.00 Pure hypercholesterolemia, unspecified; M19.90 Unspecified osteoarthritis, unspecified site; Z86.718 Personal history of other venous thrombosis and embolism; R47.81 Slurred speech; Z71.6 Tobacco abuse counseling; I44.0 Atrioventricular block, first degree; R41.0 Disorientation, unspecified; R47.1 Dysarthria and anarthria; I07.1 Rheumatic tricuspid insufficiency; Z79.899 Other long term (current) drug therapy; Z90.710 Acquired absence of both cervix and uterus; Z95.3 Presence of xenogenic heart valve; Z96.651 Presence of right artificial knee joint; Z90.49 Acquired absence of other specified parts of digestive tract; Z88.5 Allergy status to narcotic agent; Z88.7 Allergy status to serum and vaccine; Z87.891 Personal history of nicotine dependence
CPT/HCPCS: 36415; 51702; 70450; 70496; 70498; 70553; 71046; 80053; 80061; 81003; 82140; 82550; 82607; 82746; 84443; 84484; 85025; 85610; 85730; 87636; 93005; 93306; 95816; 96360; 96361; 96372; 99291

== ENCOUNTER → 2024-03-16 | Outpatient (CLI) | payer MEDICARE ==
--- NOTE | 2024-03-16 13:54 | BD ---
EXAMINATION TYPE: Axial Bone Density DATE OF EXAM: 03/16/2024 CLINICAL HISTORY: 78 years old Female. ICD-10 CODE: M81.0 OSTEOPOROSIS Height: 61 Weight: 144 FRAX RISK QUESTIONS: Family History (Parent hip fracture): yes, her mother Glucocorticoids (More than 3mos): yes, in the past heavier than now with the steroids (Ex: prednisone, prednisolone, methylprednisolone, dexamethasone, and hydrocortisone). Secondary Osteoporosis: yes 3. Menopause before 45: yes, 40 RISK FACTORS HISTORY OF: as I was scanning Karthiks spine, noticed it looked so very different from her 2014 scan, kenny mac asked about fractures, all she revealed is that she hurt her back couple weeks ago washing window s, and is a patient of Dr Mary for treatment.....claims to no adult fractures when I asked her med ical history at start of test. hx of : height loss, injury to spine 2 wks ago MEDICATIONS: vit d, calcium, bp meds, cholesterol, EXAM MEASUREMENTS: Bone mineral densitometry was performed using the SPARQ System. Bone mineral density as measured about the Lumbar spine is: ----- L1-L4(G/cm2): 1.282 T Score Values are as follows: ----- L1: 0.5 ----- L2: 2.1 ----- L3: -0.4 ----- L4: 1.1 ----- L1-L4: 0.9 Z Score Values are as follows: ----- L1: 2.4 ----- L2: 4.0 ----- L3: 1.5 ----- L4: 2.9 ----- L1-L4: 2.7 Bone mineral density has: Increased 13.0% since study of: 04.24.2014 Bone mineral density about the R hip (g/cm2): 0.901 Bone mineral density about the L hip (g/cm2): 0.901 T Score values are as follows: -----R Neck: -1.2 -----L Neck: -2.2 -----R Total: -0.8 -----L Total: -0.8 Z Score values are as follows: -----R Neck: 1.0 -----L Neck: -0.1 -----R Total: 1.1 -----L Total: 1.2 Bone mineral density has: Decreased -8.5% since study of: 04.24.2024 FRAX%s: The graph provided illustrates a 46.4% chance for a major osteoporotic fx and a 34.2% chance for the hips probability for fx in 10 years time. IMPRESSION: Normal (Values between +1 and -1 indicate normal bone mass). Consider repeating this study in 5 year s or sooner if there is some new clinical indication. NOTE: T-SCORE=SD OF THE YOUNG ADULT MEAN. [facility], , 03/16/2024 1:52 PM
--- NOTE | 2024-03-20 08:56 | MM ---
Reason for Exam: Screening (asymptomatic). Last screening mammogram was performed 12 month(s) ago. Patient History: Menarche at age 11. First Full-Term at age 19. Left ovary removed at age 46. Right ovary removed at age 46. Hysterectomy at age 46. Postmenopausal. Patient has history of breast feeding. Estrogen for 15 years until age 55. Progesterone for 15 years until age 55. Risk Values: Crystal 5 year model risk: 1.5%. NCI Lifetime model risk: 2.3%. Prior Study Comparison: 02/07/2021 Bilateral Screening Mammogram, [facility]. 02/10/2022 Bilateral MG 3D screening mammo w/cad, [facility]. 03/16/2023 Bilateral MG 3D screening mammo w/cad, [facility]. Tissue Density: The breasts are almost entirely fatty. Findings: Analyzed By CAD. Right breast: There is no suspicious group of microcalcifications or new suspicious mass. Left breast: There is no suspicious group of microcalcifications or new suspicious mass. Overall Assessment: Negative, BI-RAD 1 Management: Screening Mammogram of both breasts in [address] [facility] will attempt to contact patient to return for supplemental views and ultrasound if indicated. Patient should continue monthly self-breast exams. A clinical breast exam by your physician is recommended on an annual basis. This exam should not preclude additional follow-up of suspicious palpable abnormalities. Note on Crystal scores and lifetime risk: 1. A Crystal score greater than 3% is considered moderate risk. If this is the case, consider specialist referral to assess eligibility for a risk reducing agent. 2. If overall lifetime risk for the development of breast cancer is 20% or higher, the patient may qualify for future screening with alternating mammogram and breast MRI. [facility], , 03/20/2024 8:53 AM. Electronically signed and approved by: Lucio Lynch DO
== END | disposition home or self-care (01) ==
LOC: RADBDWWP 10:59
PROVIDERS: ATTEND Family Medicine
DX: Z12.31 Encounter for screening mammogram for malignant neoplasm of breast (principal); M81.0 Age-related osteoporosis without current pathological fracture; Z78.0 Asymptomatic menopausal state; Z90.722 Acquired absence of ovaries, bilateral
CPT/HCPCS: 77063; 77067; 77080

== ENCOUNTER 2024-05-04 20:17 | Emergency (ER) | payer MEDICARE ==
[2024-05-04 20:30] VITALS: BP 159/89; PULSE 75; RESP 16; TEMP 97.9
--- NOTE | 2024-05-04 20:47 | ED ---
Fall HPI - General Chief Complaint: Fall Stated Complaint: Fall Time Seen by Provider: 05/04/24 20:37 Source: patient, RN notes reviewed, old records reviewed Mode of arrival: EMS Limitations: no limitations - History of Present Illness Initial Comments: This is an 78-year-old female with patient presents today for evaluation regards to patient presents after a fall from standing fall and she did hit her head with significant swelling and edema to the forehead, no loss of consciousness. Patient also complaining of some wrist pain and was unable to get up after this fall. 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 Witnessed: yes, by family Place Fall Occurred: home Loss of Consciousness: none Prolonged Down Time?: no Symptoms Prior to Fall: none Location: head Location - Extremities: Right: Arm, Hand Severity: moderate Context: tripped/slipped Associated Symptoms: denies - Related Data Home Medications Medication Instructions Recorded Confirmed Cholecalciferol [Vitamin D3 (25 25 mcg PO DAILY 12/31/15 07/06/23 Mcg = 1000 Iu)] Multivitamins, Thera [Multivitamin 1 tab PO DAILY 12/31/15 07/06/23 (formulary)] NIFEdipine [Procardia XL] 60 mg PO DAILY 12/31/15 07/06/23 [place]-3 Fatty Acids/Fish Oil [Fish 1 cap PO HS 02/20/19 07/06/23 Oil 1,000 mg Softgel] Rosuvastatin [Crestor] 10 mg PO DAILY 02/20/19 07/06/23 Magnesium 250 mg PO DAILY 03/24/21 07/06/23 Calcium Carbonate [Calcium] 600 mg PO DAILY 07/06/23 07/06/23 Metoprolol Tartrate [Lopressor] 12.5 mg PO BID 07/06/23 07/06/23 Previous Rx's Medication Instructions Recorded Aspirin 81 mg PO DAILY #30 tab 07/08/23 Baclofen 5 mg PO TID PRN #0 07/08/23 Zolpidem Tartrate [Ambien] 2.5 mg PO HS PRN #3 tab 07/08/23 Cephalexin [Keflex] 500 mg PO TID 7 Days #21 cap 05/06/24 Allergies Allergy/AdvReac Type Severity Reaction Status Date / Time Tetanus Vaccines and Toxoid Allergy Swelling Verified 11/28/24 20:30 Androgenic Anabolic Steroid AdvReac Nausea & Verified 05/04/24 20:30 Vomiting codeine AdvReac Chest Pain Verified 05/04/24 20:30 Review of Systems ROS Statement: Those systems with pertinent positive or pertinent negative responses have been documented in the HPI. ROS Other: All systems not noted in ROS Statement are negative. Past Medical History Past Medical History: Blood Disorder, Deep Vein Thrombosis (DVT), Hyperlip idemia, Hypertension, Osteoarthritis (OA) Additional Past Medical History / Comment(s): heart murmur, Factor V Leiden, HX DVT years ago from taking control History of Any Multi-Drug Resistant Organisms: ESBL Date of last positivie culture/infection: 04/10/21 MDRO Source:: ESBL URINE Past Surgical History: Appendectomy, Cholecystectomy, Hysterectomy, Joint Replacement, Orthopedic Surgery Additional Past Surgical History / Comment(s): total rt knee replacement,left shoulder arthroscopy, rt shoulder surgery, rt eye surgery for torn retina. [employer] Implant Date 04/2021. Serial Number [id number]. Model Number EVPROPLUS- 29US. Aortic valve Past Anesthesia/Blood Transfusion Reactions: No Reported Reaction Past Psychological History: No Psychological Hx Reported Smoking Status: Former smoker - Past Family History Mother Family Medical History: Cancer Sister(s) Family Medical History: Deep Vein Thrombosis (DVT), Pulmonary Embolus Daughter(s) Family Medical History: Deep Vein Thrombosis (DVT) General Exam Limitations: no limitations General appearance: alert, in no apparent distress Head exam: Present: atraumatic, normocephalic, normal inspection Eye exam: Present: normal appearance, PERRL, EOMI. Absent: scleral icterus, conjunctival injection, periorbital swelling ENT exam: Present: normal exam, mucous membranes moist Neck exam: Present: normal inspection. Absent: tenderness, meningismus, lymphadenopathy Respiratory exam: Present: normal lung sounds bilaterally. Absent: respiratory distress, wheezes, rales, rhonchi, stridor Cardiovascular Exam: Present: regular rate, normal rhythm, normal heart sounds. Absent: systolic murmur, diastolic murmur, rubs, gallop, clicks GI/Abdominal exam: Present: soft, normal bowel sounds. Absent: distended, tenderness, guarding, rebound, rigid Extremities exam: Present: normal inspection, full ROM, normal capillary refill. Absent: tenderness, pedal edema, joint swelling, calf tenderness Back exam: Present: normal inspection Neurological exam: Present: alert, oriented X3, CN II-XII intact Psychiatric exam: Present: normal affect, normal mood Skin exam: Present: warm, dry, intact, normal color. Absent: rash Course Vital Signs 05/04/24 20:26 Temperature 97.9 F Pulse Rate 75 Respiratory 16 Rate Blood Pressure 159/89 O2 Sat by Pulse 97 Oximetry - Reevaluation(s) Reevaluation #1: Medical records reviewed Reevaluation #2: Patient symptoms improved Reevaluation #3: Patient informed of results and questions answered Reevaluation #4: Was pt. sent in by a medical professional or institution (, [facility], MICROSYSTEMS ENGINEER, urgent care, hospital, or jail...) When possible be specific @ -no Did you speak to anyone other than the patient for history (EMS, parent, family, police, friend...)? What history was obtained from this source @ -no Did you review nursing and triage notes (agree or disagree)? Why? @ -agree Are old charts reviewed (outside hosp., previous admission, EMS record, old EKG, old radiological studies, urgent care reports/EKG's, jail records)? Report findings @ -yes Differential Diagnosis (chest pain, altered mental status, abdominal pain women, abdominal pain men, vaginal bleeding, weakness, fever, dyspnea, syncope, headache, dizziness, GI bleed, back pain, seizure, CVA, palpatations, mental health, musculoskeletal)? @ -prior EKG interpreted by me (3pts min.). @ -yes X-rays interpreted by me (1pt min.). @ -yes negative for acute disease CT interpreted by me (1pt min.). @ -yes Chest negative for acute disease U/S interpreted by me (1pt. min.). @ -no What testing was considered but not performed or refused? (CT, X-rays, U/S, labs)? Why? @ -none What meds were considered but not given or refused? Why? @ -none Did you discuss the management of the patient with other professionals (professionals i.e. [facility] Cash, MICROSYSTEMS ENGINEER, lab, RT, psych nurse, social welfare research worker, astronomy instructor, teacher, learning and development officer, rn case management)? Give summary @ -no Was smoking cessation discussed for >3mins.? @ -no Was critical care preformed (if so, how long)? @ -no Were there social determinants of health that impacted care today? How? (Homelessness, low income, unemployed, alcoholism, drug addiction, transportation, low edu. Level, literacy, decrease access to med. care, fdc, rehab)? @ -none Was there de-escalation of care discussed even if they declined (Discuss DNR or withdrawal of care, Hospice)? DNR status @ -no What co-morbidities impacted this encounter? (DM, HTN, Smoking, COPD, CAD, Cancer, CVA, ARF, Chemo, Hep., AIDS, mental health diagnosis, sleep apnea, morbid obesity)? @ -none Was patient admitted / discharged? Hospital course, mention meds given and route, prescriptions, significant lab abnormalities, going to OR and other pertinent info. @ -78 female to the ER status post fall. No acute traumatic injury noted patient can be discharged home Undiagnosed new problem with uncertain prognosis? @ -no Drug Therapy requiring intensive monitoring for toxicity (Heparin, Nitro, Insulin, Cardizem)? @ -no Were any procedures done? @ -no Diagnosis/symptom? @ -Fall, head injury Acute, or Chronic, or Acute on Chronic? @ -Acute Uncomplicated (without systemic symptoms) or Complicated (systemic symptoms)? @ -Complicated Side effects of treatment? @ -no Exacerbation, Progression, or Severe Exacerbation? @ -exacerbation Poses a threat to life or bodily function? How? (Chest pain, [place], [place], pneumonia, PE, COPD, DKA, ARF, appy, cholecystitis, CVA, Diverticulitis, Homicidal, Suicidal, threat to staff... and all critical care pts) @ -yes fall with head injury Medical Decision Making - Medical Decision Making 78 female fall with head injury. No acute traumatic injury noted patient can be discharged home - Radiology Data Radiology results: report reviewed (CT brain facial bones C-spine x-ray chest pelvis wrist negative for traumatic injury), image reviewed Disposition Clinical Impression: Fall, Head injury, Nasal contusion, Skin tear of left hand without complication Disposition: HOME SELF-CARE Condition: Good Instructions (If sedation given, give patient instructions): Fall Prevention for Older Adults (ED), Head Injury (ED) Prescriptions: Cephalexin [Keflex] 500 mg PO TID 7 Days #21 cap Is patient prescribed a controlled substance at d/c from ED?: No Referrals: Boby Long DO [Primary Care Provider] - 1-2 days Time of Disposition: 22:00
--- NOTE | 2024-05-04 21:33 | XR ---
EXAMINATION TYPE: XR chest 1V DATE OF EXAM: 05/04/2024 9:16 PM COMPARISON: Previous chest radiograph 07/06/2023. CLINICAL INDICATION: Female, 78 years old with history of fall; [facility] TECHNIQUE: XR chest 1V Frontal view of the chest. FINDINGS: Lungs/Pleura: There is no evidence of pleural effusion, focal consolidation, or pneumothorax. Pulmonary vascularity: Unremarkable. Heart/mediastinum: Cardiomediastinal silhouette is unremarkable. Musculoskeletal: No acute osseous pathology. Other findings: Right shoulder arthroplasty. Severe degenerative changes of the partially visualized left shoulder. IMPRESSION: No acute cardiopulmonary disease/process. [facility], , 05/04/2024 9:31 PM
--- NOTE | 2024-05-04 21:34 | XR ---
EXAMINATION TYPE: XR pelvis AP view DATE OF EXAM: 05/04/2024 9:16 PM COMPARISON: None available. CLINICAL INDICATION: Female, 78 years old with history of fall; [facility] TECHNIQUE: XR pelvis AP view, examined in a single projection. FINDINGS: There is no evidence of fracture or dislocation. There is no soft tissue abnormality. No a bnormal calcifications are present. The spine appears intact. The hips appear intact. Moderate to sev ere degenerative changes of the right hip. [id number] degenerative osteophytes of the left hip. ' IMPRESSION: No convincing radiographic evidence of acute fracture or dislocation. [facility], , 05/04/2024 9:32 PM
--- NOTE | 2024-05-04 21:35 | XR ---
EXAMINATION TYPE: XR wrist complete LT DATE OF EXAM: 05/04/2024 9:16 PM COMPARISON: None available. CLINICAL INDICATION: Female, 78 years old with history of fall; [facility] TECHNIQUE: XR wrist complete LT; examined in the Frontal, navicular, lateral, and oblique. FINDINGS: No acute osseous pathology, joint dislocation, or joint effusion. Osseous structures quali tatively demineralized. Carpal alignment appears maintained. Degenerative arthritis throughout the ca rpal and metacarpal bones. Radiocarpal degenerative osteophyte is also noted. No evidence of any soft tissue swelling is seen. IMPRESSION: No acute osseous pathology. [facility], , 05/04/2024 9:33 PM
--- NOTE | 2024-05-04 21:44 | CT ---
EXAMINATION TYPE: CT brain cspine wo con DATE OF EXAM: 05/04/2024 9:34 PM COMPARISON: None available. CLINICAL INDICATION: Female, 78 years old with history of fall; Pt states she tripped at home on a sh oe rack and fell, injuring her nose, right eyebrow, left anterior aspect of the hand and the right fi rst knuckle. Pt denies taking blood thinners, denies LOC or dizziness TECHNIQUE: Brain: Multiple axial CT images of the brain were obtained without IV contrast. Cspine: Axial CT images from the skull base to the inferior aspect of T2 we obtained without intraven ous contrast. Coronal and sagittal reformatted images were also reviewed. . CT DLP: 749.9 mGycm, Automated exposure control for dose reduction was used. FINDINGS: Brain: No ventricular hemorrhage, midline shift or density mass effect. Ventricles and sulci mildly prominen t compatible with generalized cerebral volume loss. A subtle extra axial fluid collection. The cister ns appear patent. Patchy periventricular and subcortical white matter hypoattenuation likely reflecti ng chronic microvascular ischemia. Rapp-white matter differentiation otherwise appears to be preserve d. Previous bilateral cataract lens extraction noted. No obvious large scalp hematoma or evidence of a depressed calvarial fracture. Cervical spine: Mild straightening of the normal cervical spinal lordotic curvature. There is anterolisthesis of C7 o n T1. Multilevel intraosseous reformation and vertebral disc space loss. Osseous structures are diffu sely demineralized. No definite acute fracture or traumatic subluxation. Evaluation of the spinal can al suboptimal due to streak artifact. No significant prevertebral soft tissue swelling. Multilevel fa cet arthropathy and hypertrophy in combination with posterior disc osteophyte complexes cause varying degrees of spinal canal and neural foraminal stenosis. IMPRESSION: 1. No acute intracranial process. 2. No acute fracture or traumatic subluxation of the cervical spine. 3. Cervical spine degenerative changes as above. [facility], , 05/04/2024 9:42 PM
--- NOTE | 2024-05-04 21:46 | CT ---
EXAMINATION TYPE: CT facial bones wo con DATE OF EXAM: 05/04/2024 9:33 PM COMPARISON: None available.. CLINICAL INDICATION: Female, 78 years old with history of fall; PHH, Pt states she tripped at home on a shoe rack and fell, injuring her nose, right eyebrow, left anterior aspect of the hand and the rig ht first knuckle. Pt denies taking blood thinners, denies LOC or dizziness TECHNIQUE: Multiple unenhanced axial CT images were obtained of the facial bones soft tissue and bone windows. Coronal, axial and sagittal reformatted images were also provided in soft tissue and bone windows and submitted for interpretation. Additional 3-D reformatted images were obtained on a [employer] workstation. . CT DLP: 327.8 mGycm, Automated exposure control for dose reduction was used. FINDINGS: There is no evidence of fracture, subluxation, or dislocation. There is facial soft tissue swelling. The orbital contents are unremarkable.The temporal-mandibular joints appear symmetric. The visualized portion of the paranasal sinuses appear clear. IMPRESSION: Facial soft tissue swelling without evidence of acute facial bone fracture. [facility], , 05/04/2024 9:44 PM
[2024-05-04] MEDS: KETOROLAC 15 MG/ML 1 ML VIAL IM STA (22:05)
[2024-05-04] MEDS: traMADol 50 MG STARTER PACK 3 TAB BTL PO STA (22:18)
[2024-05-04] MEDS: IBUPROFEN 600 MG STARTER PACK 4 TAB BTL PO STA (22:18)
[2024-05-04] MEDS: CEPHALEXIN 500 MG CAP PO STA (22:18)
[2024-05-04] MEDS: CEPHALEXIN 500MG STARTER PACK 4 CAP BTL PO STA (22:18)
== END 2024-05-04 22:23 | disposition home or self-care (01) ==
LOC: EC 20:17
DX: S00.33XA Contusion of nose, initial encounter (principal); S61.412A Laceration without foreign body of left hand, initial encounter; Z88.5 Allergy status to narcotic agent; Z88.7 Allergy status to serum and vaccine; Z88.8 Allergy status to other drugs, medicaments and biological substances; Z87.891 Personal history of nicotine dependence; W01.0XXA Fall on same level from slipping, tripping and stumbling without subsequent striking against object, initial encounter; Y92.009 Unspecified place in unspecified non-institutional (private) residence as the place of occurrence of the external cause
CPT/HCPCS: 72170; 73110; 71045; 72125; 70486; 70450; 99284; 96372; J1885